=== PATIENT | male | born 1950 | race Caucasian/White ===

== ENCOUNTER 2022-10-20 17:51 | Inpatient (IN) ==
--- NOTE | 2022-10-20 18:09 | Emergency Department Note ---
Impression & Plan Sepsis, Elevated procalcitonin, Leukocytosis ED Provider Note HISTORY OF PRESENT ILLNESS: Patient is a 72-year-old male presenting with vomiting and rigors. Patient reports that for the last 48 hours he has been having episodes of vomiting and episodes of "shaking." He denies taking his temperature but his significant other reports that he has felt warm. Reports a bowel movement yesterday. He recently had part of his liver resected and a cholecystectomy performed on 10/05/2022. He states that he took his last postoperative antibiotic 3 days ago. He denies any chest pain or shortness of breath. Denies any dysuria or hematuria. ROS: as above PHYSICAL EXAM: Constitutional: Patient appears in no acute distress. HENT: Head: Normocephalic and atraumatic. Eyes: EOMI, PERRL Mouth/Throat: Mucous membranes moist. Neck: Trachea midline. Neck supple. Cardiovascular: RRR, No murmurs, rubs or gallops. Intact distal pulses. Pulmonary/Chest: No respiratory distress. Breath sounds clear and equal bilaterally. No wheezes or rales. No chest wall tenderness to palpation. Abdominal: BS +. Abdomen soft, no tenderness, rebound or guarding. Musculoskeletal: No edema, tenderness or deformity noted. Skin: Warm and dry. No rash, erythema, pallor or cyanosis Psychiatric: Appropriate mood and affect for situation. Neurological: Alert and keenly responsive. CN II-XII grossly intact, moving all extremities equally and fully. MDM: - Vitals signs showed hypotension. - History obtained via patient. Patient presents with vomiting and rigors. Patient reports for the last 48 hours has been having multiple episodes of vomiting and shaking. Reports subjective fevers at home. Denies any chest pain or shortness of breath. Denies any dysuria or hematuria. - Chronic conditions affecting care: cancer - Differential diagnoses include, but are not limited to: UTI; pneumonia; bacteremia; post-op infection - Order placed for continuous cardiac monitoring. At this time, monitor showed rate of 90 bpm with normal sinus rhythm, per my interpretation. - External medical records reviewed. - EKG reviewed by myself showed normal sinus rhythm. Rate 83 bpm. QTc 420. No acute ischemic changes - Laboratory workup interpreted by myself showed leukocytosis (WBC 17.71) with left shift; elevated lactate (2.9); slight hyponatremia (Na 135); elevated anion gap (14); normal creatinine; normal liver function; elevated procalcitonin (28.33) - CXR negative for pneumonia, per my interpretation - UA ordered - CT abdomen/pelvis with IV contrast negative for acute pathology - Blood cultures obtained. - Patient given 2L NS in ER. - Given IV vancomycin and IV zosyn for antibiotic coverage. - Patient had episode of vomiting in ER. Given 4 mg IV zofran. Active rigors in ER. Given 1g IV rocephin. - Discussion was had with social media intern about patient's case and need for admission. - Hospitalist, Dr. Luna, consulted for admission - [facility] I provided 33 minutes of critical care time to this patient's care outside of billable procedures. ASSESSMENT AND PLAN: Diagnosis: sepsis; leukocytosis; elevated lactate; hyponatremia; elevated procalcitonin Plan: admit Past Med/Surg History Social History Smoking Status: Former smoker Preferred Language: Portuguese Feels Safe at Home: Yes Allergies Allergies Allergy/AdvReac Type Severity Reaction Status Date / Time No Known Allergies Allergy Verified 10/20/22 19:36 Home Meds Home Medications Medication Instructions Recorded Confirmed aspirin 81 mg tablet,delayed 81 mg PO DAILY 10/20/22 10/20/22 release atorvastatin 80 mg tablet 80 mg PO QAM 10/20/22 10/20/22 ezetimibe 10 mg tablet 10 mg PO QAM 10/20/22 10/20/22 ibuprofen 600 mg tablet 600 mg PO Q6H PRN Pain 10/20/22 10/20/22 meloxicam 15 mg tablet 15 mg PO DAILY 10/20/22 10/20/22 multivitamin 1 tab PO DAILY 10/20/22 10/20/22 oxycodone 10 mg tablet 10 mg PO Q6H PRN Pain 10/20/22 10/20/22 spironolactone 25 mg tablet 25 mg PO DAILY 10/20/22 10/20/22 Results & Data (ED) Vital Signs Vital Signs - 24 hr 10/20/22 17:57 10/20/22 18:10 10/20/22 18:30 Temperature 36.5 C Temperature Source Temporal Artery Scan Pulse Rate 110 H 94 H Pulse Rate [Apical] 82 Pulse Rate from SpO2 Sensor Respiratory Rate 19 18 Respiratory Effort / Characteristics Non-Labored Spontaneous Non-Labored Spontaneous Respiratory Depth Normal Normal Respiratory Pattern Regular Blood Pressure 65/32 L Blood Pressure [Right Arm] 97/59 L Blood Pressure Mean 43 Blood Pressure Mean [Right Arm] 71 Pulse Oximetry 97 94 Oxygen Delivery Method Room Air Room Air Sepsis Recent Fever Within 48 Hours No Sepsis New/Unexplained Change in Mental Status N/A Sepsis Action Taken by Nursing No Action Required 10/20/22 20:37 10/20/22 18:08 10/20/22 18:10 Temperature Temperature Source Pulse Rate 87 86 Pulse Rate [Apical] Pulse Rate from SpO2 Sensor Respiratory Rate 23 21 Respiratory Effort / Characteristics Non-Labored Respiratory Depth Normal Respiratory Pattern Blood Pressure Blood Pressure [Right Arm] Blood Pressure Mean Blood Pressure Mean [Right Arm] Pulse Oximetry Oxygen Delivery Method Sepsis Recent Fever Within 48 Hours Sepsis New/Unexplained Change in Mental Status Sepsis Action Taken by Nursing 10/20/22 18:20 10/20/22 18:30 10/20/22 18:30 Temperature Temperature Source Pulse Rate 86 82 Pulse Rate [Apical] Pulse Rate from SpO2 Sensor 82 Respiratory Rate 20 24 Respiratory Effort / Characteristics Respiratory Depth Respiratory Pattern Blood Pressure 97/59 L Blood Pressure [Right Arm] Blood Pressure Mean 64 Blood Pressure Mean [Right Arm] Pulse Oximetry 97 Oxygen Delivery Method Sepsis Recent Fever Within 48 Hours Sepsis New/Unexplained Change in Mental Status Sepsis Action Taken by Nursing 10/20/22 18:40 10/20/22 18:50 10/20/22 19:00 Temperature Temperature Source Pulse Rate 87 86 85 Pulse Rate [Apical] Pulse Rate from SpO2 Sensor 86 85 84 Respiratory Rate 22 16 18 Respiratory Effort / Characteristics Respiratory Depth Respiratory Pattern Blood Pressure Blood Pressure [Right Arm] Blood Pressure Mean Blood Pressure Mean [Right Arm] Pulse Oximetry 100 100 97 Oxygen Delivery Method Sepsis Recent Fever Within 48 Hours Sepsis New/Unexplained Change in Mental Status Sepsis Action Taken by Nursing 10/20/22 19:10 10/20/22 19:20 10/20/22 19:30 Temperature Temperature Source Pulse Rate 86 87 87 Pulse Rate [Apical] Pulse Rate from SpO2 Sensor 86 88 85 Respiratory Rate 20 16 21 Respiratory Effort / Characteristics Respiratory Depth Respiratory Pattern Blood Pressure Blood Pressure [Right Arm] Blood Pressure Mean Blood Pressure Mean [Right Arm] Pulse Oximetry 96 98 99 Oxygen Delivery Method Sepsis Recent Fever Within 48 Hours Sepsis New/Unexplained Change in Mental Status Sepsis Action Taken by Nursing 10/20/22 19:31 10/20/22 19:31 10/20/22 19:39 Temperature Temperature Source Pulse Rate 87 85 Pulse Rate [Apical] Pulse Rate from SpO2 Sensor 87 88 Respiratory Rate 24 18 Respiratory Effort / Characteristics Respiratory Depth Respiratory Pattern Blood Pressure 85/60 L Blood Pressure [Right Arm] Blood Pressure Mean 67 Blood Pressure Mean [Right Arm] Pulse Oximetry 97 99 Oxygen Delivery Method Sepsis Recent Fever Within 48 Hours Sepsis New/Unexplained Change in Mental Status Sepsis Action Taken by Nursing 10/20/22 19:39 10/20/22 19:40 10/20/22 20:27 Temperature Temperature Source Pulse Rate 85 Pulse Rate [Apical] Pulse Rate from SpO2 Sensor 86 85 Respiratory Rate 24 Respiratory Effort / Characteristics Respiratory Depth Respiratory Pattern Blood Pressure 91/54 L Blood Pressure [Right Arm] Blood Pressure Mean 59 Blood Pressure Mean [Right Arm] Pulse Oximetry 100 99 Oxygen Delivery Method Sepsis Recent Fever Within 48 Hours Sepsis New/Unexplained Change in Mental Status Sepsis Action Taken by Nursing 10/20/22 20:30 10/20/22 20:30 10/20/22 21:45 Temperature Temperature Source Pulse Rate 84 Pulse Rate [Apical] Pulse Rate from SpO2 Sensor 86 Respiratory Rate 16 Respiratory Effort / Characteristics Non-Labored Respiratory Depth Normal Respiratory Pattern Blood Pressure 89/55 L Blood Pressure [Right Arm] Blood Pressure Mean 68 Blood Pressure Mean [Right Arm] Pulse Oximetry 100 Oxygen Delivery Method Room Air Sepsis Recent Fever Within 48 Hours Sepsis New/Unexplained Change in Mental Status Sepsis Action Taken by Nursing 10/20/22 20:00 10/20/22 20:40 10/20/22 20:50 Temperature Temperature Source Pulse Rate 82 85 Pulse Rate [Apical] Pulse Rate from SpO2 Sensor 82 86 Respiratory Rate 24 12 Respiratory Effort / Characteristics Non-Labored Respiratory Depth Normal Respiratory Pattern Blood Pressure Blood Pressure [Right Arm] Blood Pressure Mean Blood Pressure Mean [Right Arm] Pulse Oximetry 98 99 Oxygen Delivery Method Sepsis Recent Fever Within 48 Hours Sepsis New/Unexplained Change in Mental Status Sepsis Action Taken by Nursing 10/20/22 21:00 10/20/22 21:00 10/20/22 21:10 Temperature Temperature Source Pulse Rate 80 80 Pulse Rate [Apical] Pulse Rate from SpO2 Sensor 80 80 Respiratory Rate 18 14 Respiratory Effort / Characteristics Respiratory Depth Respiratory Pattern Blood Pressure 94/62 L Blood Pressure [Right Arm] Blood Pressure Mean 68 Blood Pressure Mean [Right Arm] Pulse Oximetry 98 99 Oxygen Delivery Method Sepsis Recent Fever Within 48 Hours Sepsis New/Unexplained Change in Mental Status Sepsis Action Taken by Nursing 10/20/22 21:20 10/20/22 21:30 10/20/22 21:30 Temperature Temperature Source Pulse Rate 82 83 Pulse Rate [Apical] Pulse Rate from SpO2 Sensor 81 80 Respiratory Rate 18 16 Respiratory Effort / Characteristics Respiratory Depth Respiratory Pattern Blood Pressure 91/55 L Blood Pressure [Right Arm] Blood Pressure Mean 60 Blood Pressure Mean [Right Arm] Pulse Oximetry 97 99 Oxygen Delivery Method Sepsis Recent Fever Within 48 Hours Sepsis New/Unexplained Change in Mental Status Sepsis Action Taken by Nursing 10/20/22 21:40 10/20/22 22:00 10/20/22 22:15 Temperature Temperature Source Pulse Rate 79 Pulse Rate [Apical] Pulse Rate from SpO2 Sensor 79 Respiratory Rate 17 Respiratory Effort / Characteristics Non-Labored Non-Labored Respiratory Depth Normal Normal Respiratory Pattern Blood Pressure Blood Pressure [Right Arm] Blood Pressure Mean Blood Pressure Mean [Right Arm] Pulse Oximetry 98 Oxygen Delivery Method Sepsis Recent Fever Within 48 Hours Sepsis New/Unexplained Change in Mental Status Sepsis Action Taken by Nursing 10/20/22 21:50 10/20/22 22:00 10/20/22 22:00 Temperature Temperature Source Pulse Rate 86 82 Pulse Rate [Apical] Pulse Rate from SpO2 Sensor 83 84 Respiratory Rate 17 19 Respiratory Effort / Characteristics Respiratory Depth Respiratory Pattern Blood Pressure 103/67 Blood Pressure [Right Arm] Blood Pressure Mean 85 Blood Pressure Mean [Right Arm] Pulse Oximetry 98 99 Oxygen Delivery Method Sepsis Recent Fever Within 48 Hours Sepsis New/Unexplained Change in Mental Status Sepsis Action Taken by Nursing 10/20/22 22:10 Temperature Temperature Source Pulse Rate 89 Pulse Rate [Apical] Pulse Rate from SpO2 Sensor 78 Respiratory Rate 19 Respiratory Effort / Characteristics Respiratory Depth Respiratory Pattern Blood Pressure Blood Pressure [Right Arm] Blood Pressure Mean Blood Pressure Mean [Right Arm] Pulse Oximetry 92 Oxygen Delivery Method Sepsis Recent Fever Within 48 Hours Sepsis New/Unexplained Change in Mental Status Sepsis Action Taken by Nursing Laboratory Data 10/20/22 18:19 10/20/22 18:19 Lab Results 10/20/22 10/20/22 10/20/22 Range/Units 18:19 18:19 18:19 WBC 17.71 H (4.8-10.8) K/ul RBC 3.62 L (4.70-6.10) M/uL Hgb 10.4 L (14.0-18.0) g/dl Hct 31.9 L (42.0-52.0) % MCV 88.1 (80.0-100.0) fL MCH 28.7 (25.0-34.0) pg MCHC 32.6 (32.0-36.0) g/dL RDW Std Deviation 46.3 (36.4-46.3) fL RDW Coeff of Brandon 14.6 H (11.5-14.5) % Plt Count 225 (130-400) K/uL MPV 10.0 (9.4-12.4) fL Immature Gran % (Auto) 0.8 % Neut % (Auto) 92.4 % Lymph % (Auto) 3.8 % Benson % (Auto) 2.7 % Eos % (Auto) 0.1 % Baso % (Auto) 0.2 % Neut # (Auto) 16.36 H (1.40-6.50) K/uL Lymph # (Auto) 0.67 L (1.2-3.4) K/uL Benson # (Auto) 0.48 (0.11-0.59) K/uL Eos # (Auto) 0.02 (0-0.50) K/uL Baso # (Auto) 0.03 (0-0.2) K/uL Immature Gran # (Auto) 0.15 (0.01-0.20) K/uL Sodium 135 L (136-145) mmol/L Potassium 4.1 (3.5-5.1) mmol/L Chloride 99 (98-107) mmol/L Carbon Dioxide 22 (21-32) mmol/L Anion Gap 14 H (3-11) BUN 28 H (6-23) mg/dl Creatinine 1.35 (0.6-1.4) mg/dl Est Cr Clr Drug Dosing 42.6 ml/min Est GFR ( Amer) 59.5 ml/min Est GFR (Non-Af Amer) 51.4 ml/min BUN/Creatinine Ratio 20.7 H (10-20) Glucose 78 (70-99(Fasting)) mg/dl Lactate (0.4-2.0) mmol/L Calcium 9.4 (8.6-10.3) mg/dl Magnesium 1.9 (1.7-2.4) mg/dl Total Bilirubin 0.7 (0.2-1.0) mg/dl Direct Bilirubin 0.2 (0-0.2) mg/dl AST 21 (13-39) U/L ALT 14 (7-52) U/L Alkaline Phosphatase 122 H (34-104) U/L Total Protein 6.8 (6.0-8.3) gm/dl Albumin 3.6 (3.4-5.0) gm/dl Procalcitonin 28.33 H (0-0.5) ng/ml SARS-CoV-2, RNA, NAAT (NEGATIVE) 10/20/22 10/20/22 10/20/22 Range/Units 19:03 19:42 21:05 WBC (4.8-10.8) K/ul RBC (4.70-6.10) M/uL Hgb (14.0-18.0) g/dl Hct (42.0-52.0) % MCV (80.0-100.0) fL MCH (25.0-34.0) pg MCHC (32.0-36.0) g/dL RDW Std Deviation (36.4-46.3) fL RDW Coeff of Brandon (11.5-14.5) % Plt Count (130-400) K/uL MPV (9.4-12.4) fL Immature Gran % (Auto) % Neut % (Auto) % Lymph % (Auto) % Benson % (Auto) % Eos % (Auto) % Baso % (Auto) % Neut # (Auto) (1.40-6.50) K/uL Lymph # (Auto) (1.2-3.4) K/uL Benson # (Auto) (0.11-0.59) K/uL Eos # (Auto) (0-0.50) K/uL Baso # (Auto) (0-0.2) K/uL Immature Gran # (Auto) (0.01-0.20) K/uL Sodium (136-145) mmol/L Potassium (3.5-5.1) mmol/L Chloride (98-107) mmol/L Carbon Dioxide (21-32) mmol/L Anion Gap (3-11) BUN (6-23) mg/dl Creatinine (0.6-1.4) mg/dl Est Cr Clr Drug Dosing ml/min Est GFR ( Amer) ml/min Est GFR (Non-Af Amer) ml/min BUN/Creatinine Ratio (10-20) Glucose (70-99(Fasting)) mg/dl Lactate 2.9 H* 1.0 (0.4-2.0) mmol/L Calcium (8.6-10.3) mg/dl Magnesium (1.7-2.4) mg/dl Total Bilirubin (0.2-1.0) mg/dl Direct Bilirubin (0-0.2) mg/dl AST (13-39) U/L ALT (7-52) U/L Alkaline Phosphatase (34-104) U/L Total Protein (6.0-8.3) gm/dl Albumin (3.4-5.0) gm/dl Procalcitonin (0-0.5) ng/ml SARS-CoV-2, RNA, NAAT NEGATIVE (NEGATIVE) Administered Medications Discontinued Medications Sodium Chloride (Nss 1000ml) 1,000 mls @ 999 mls/hr IV .Q1H1M LASHAWN Stop: 10/20/22 19:15 Last Infusion: 10/20/22 19:46 Dose: 0 mls/hr Documented By: Admin: 10/20/22 18:33 Dose: 999 mls/hr Documented By: LINDSAY Vancomycin HCl 1,250 mg/ (Sodium Chloride) 525 mls @ 200 mls/hr IV NOW ONE Stop: 10/20/22 22:33 Last Admin: 10/20/22 21:16 Dose: 200 mls/hr Documented By: JANEE Piperacillin Sod/Tazobactam Sod (Zosyn) 4.5 gm in 120 mls @ 240 mls/hr IV NOW ONE Stop: 10/20/22 20:25 Last Infusion: 10/20/22 21:20 Dose: 0 mls/hr Documented By: Admin: 10/20/22 20:34 Dose: 240 mls/hr Documented By: RAFI Sodium Chloride (Nss 1000ml) 1,000 mls @ 999 mls/hr IV .Q1H1M ONE Stop: 10/20/22 21:30 Last Infusion: 10/20/22 22:30 Dose: 0 mls/hr Documented By: Admin: 10/20/22 20:36 Dose: 999 mls/hr Documented By: RAFI Ioversol (Optiray 320 100ml) 90 ml IV ONCE ONE Stop: 10/20/22 19:56 Last Admin: 10/20/22 19:55 Dose: 90 ml Documented By: EDGAR Ondansetron HCl (Ondansetron Inj 2 Mg/Ml 2 Ml Vial) 4 mg IV NOW STA Stop: 10/20/22 22:43 Last Admin: 10/20/22 22:46 Dose: 4 mg Documented By: RAFI Ondansetron HCl (Ondansetron Inj 2 Mg/Ml 2 Ml Vial) Confirm Administered Dose 4 mg .ROUTE .STK-MED ONE Stop: 10/20/22 22:45 Last Admin: 10/20/22 22:46 Dose: Not Given Documented By: RAFI Imaging Data Radiologist's Impression: Abdomen/Pelvis CT 10/20/22 18:07 Exam(s): CT ABDOMEN + PELVIS With Contrast IV Amt: 90ml EXAM: CT Abdomen and Pelvis With Intravenous Contrast CLINICAL HISTORY: Reason for exam: abd pain; vomiting; recent liver resect and cholec. TECHNIQUE: Axial computed tomography images of the abdomen and pelvis with intravenous contrast. CTDI is 9.74 mGy and DLP is 443.32 mGy-cm. Automated exposure control was utilized for the study. A dose lowering technique was utilized adhering to the principles of ALARA. CONTRAST: Patient received 90ml of IV contrast COMPARISON: No relevant prior studies available. FINDINGS: Lung bases: Unremarkable. No mass. No consolidation. ABDOMEN: Liver: Status post left hepatectomy. Minimal simple appearing fluid adjacent to the surgical margin. Several low densities in the right lobe of the liver measuring up to 1.1 cm consistent with simple cysts. Gallbladder and bile ducts: Unremarkable. No calcified stones. No ductal dilation. Pancreas: Unremarkable. No mass. No ductal dilation. Spleen: Unremarkable. No splenomegaly. Adrenals: Unremarkable. No mass. Kidneys and ureters: 3 cm simple cyst arising off the lower pole of the right kidney. No further workup is required. No hydronephrosis. Stomach and bowel: Unremarkable. No obstruction. No mucosal thickening. PELVIS: Appendix: No findings to suggest acute appendicitis. Bladder: Unremarkable. No mass. Reproductive: Unremarkable as visualized. ABDOMEN and PELVIS: Intraperitoneal space: Unremarkable. No free air. No significant fluid collection. Bones/joints: No acute fracture. No dislocation. Soft tissues: Unremarkable. Vasculature: Gallbladder has been removed. 3.2 cm infrarenal abdominal aortic aneurysm without evidence of rupture. Lymph nodes: Unremarkable. No enlarged lymph nodes. IMPRESSION: No acute findings in the abdomen or pelvis. Status post left hepatectomy. Minimal simple appearing fluid adjacent to the surgical margin. 3.2 cm infrarenal abdominal aortic aneurysm without evidence of rupture. Electronically signed by: Carl Harrison M.D. 10/20/22 22:21 PM Chest X-Ray 10/20/22 18:07 XR chest 1V portable HISTORY: 72 years-old Male Sepsis acute sepsis COMPARISON: CT abdomen and pelvis of same day TECHNIQUE: AP view of the chest FINDINGS: Cardiomediastinal and hilar silhouettes are within normal limits. No pneum othorax, pleural effusion, airspace consolidation or pulmonary edema. Spondylotic spurring of the spine with mid thoracic dextroscoliosis. IMPRESSION: No acute process. ACT 112: Negative or not required by law. The above report was generated using voice recognition software. It may contain grammatical, syntax or spelling errors. Electronically signed by: Sean Bartholomew M.D. 10/20/2022 8:07 PM Discharge Plan Visit Data Chief Complaint: Abdominal Pain Stated Complaint: STOMACH SURGERY ED Provider: Digna Pineda Discharge Problem: Sepsis, Elevated procalcitonin, Leukocytosis Forms Stand Alone Forms: On License Of [facility] Prescriptions Prescriptions: No Action multivitamin Tablet 1 tab PO DAILY atorvastatin 80 mg tablet 80 mg PO QAM meloxicam 15 mg tablet 15 mg PO DAILY aspirin 81 mg Tablet,Delayed Release (Dr/Ec) 81 mg PO DAILY spironolactone 25 mg tablet 25 mg PO DAILY Rx Instructions: STARTED 10/09/22 FOR 14 DAYS. ibuprofen 600 mg tablet 600 mg PO Q6H PRN (Reason: Pain) ezetimibe 10 mg tablet 10 mg PO QAM oxycodone 10 mg tablet 10 mg PO Q6H PRN (Reason: Pain) Referrals Referrals: PCP,NO [Primary Care Provider] -
[2022-10-20] MEDS ORDERED: SODIUM CHLORIDE 0.9% 1000ML 1,000 ML IV SCH (18:15)
[2022-10-20 19:21] LABS: Hematocrit (blood only) 31.9 % (42.0-52.0); Hemoglobin 10.4 g/dl (14.0-18.0); Mean Corpuscular Hemoglobin 28.7 pg (25.0-34.0); Mean Corpuscular Hgb Conc 32.6 g/dL (32.0-36.0); Mean Corpuscular Volume 88.1 fL (80.0-100.0); Platelet Count 225 K/uL (130-400); RDW Coefficient of Variation 14.6 % (11.5-14.5); RDW Standard Deviation 46.3 fL (36.4-46.3); Red Blood Count 3.62 M/uL (4.70-6.10); White Blood Count 17.71 K/ul (4.8-10.8)
[2022-10-20 19:31] LABS: Albumin Level 3.6 gm/dl (3.4-5.0); BUN Creatinine Ratio 20.7 (10-20); Bilirubin Direct 0.2 mg/dl (0-0.2); Bilirubin,Total 0.7 mg/dl (0.2-1.0); Calcium 9.4 mg/dl (8.6-10.3); Creatinine Clr Calc Pharmacy 42.6 ml/min; Est GFR (African American) 59.5 ml/min; Est GFR (Non-African American) 51.4 ml/min; Magnesium 1.9 mg/dl (1.7-2.4); Potassium 4.1 mmol/L (3.5-5.1); Total Protein 6.8 gm/dl (6.0-8.3)
[2022-10-20 19:46] LABS: Basophils # (auto) 0.03 K/uL (0-0.2); Basophils % (auto) 0.2 %; Eosinophils # (auto) 0.02 K/uL (0-0.50); Eosinophils % (auto) 0.1 %; Immature Granulocytes # (auto) 0.15 K/uL (0.01-0.20); Immature Granulocytes % (auto) 0.8 %; Lymphocytes # (auto) 0.67 K/uL (1.2-3.4); Lymphocytes % (auto) 3.8 %; Monocytes # (auto) 0.48 K/uL (0.11-0.59); Monocytes % (auto) 2.7 %; Neutrophils # (auto) 16.36 K/uL (1.40-6.50); Neutrophils % (auto) 92.4 %
[2022-10-20] MEDS ORDERED: OPTIRAY 320 100ml IV ONE (19:55)
[2022-10-20] MEDS ORDERED: VANCOMYCIN CONSULT ACTIVE PRN (19:56)
[2022-10-20] MEDS ORDERED: PIPERACILLIN/TAZOBACTAM 4.5 GM/120 ML BAG IV ONE (19:56)
[2022-10-20] MEDS ORDERED: VANCOMYCIN HCL 1,250 MG in SODIUM CHLORIDE 0.9% 500 ML IV ONE (19:56)
--- NOTE | 2022-10-20 20:09 | XRay Report ---
XR chest 1V portable HISTORY: 72 years-old Male Sepsis acute sepsis COMPARISON: CT abdomen and pelvis of same day TECHNIQUE: AP view of the chest FINDINGS: Cardiomediastinal and hilar silhouettes are within normal limits. No pneumothorax, pleural effusion, airspace consolidation or pulmonary edema. Spondylotic spurring of the spine with mid thoracic dextro scoliosis. IMPRESSION: No acute process. ACT 112: Negative or not required by law. The above report was generated using voice recognition software. It may contain grammatical, syntax o r spelling errors. Electronically signed by: Sean Bartholomew M.D. 10/20/2022 8:07 PM
[2022-10-20] MEDS ORDERED: SODIUM CHLORIDE 0.9% 1000ML 1,000 ML IV ONE (20:30)
--- NOTE | 2022-10-20 22:22 | CT Scan Report ---
Exam(s): CT ABDOMEN + PELVIS With Contrast IV Amt: 90ml EXAM: CT Abdomen and Pelvis With Intravenous Contrast CLINICAL HISTORY: Reason for exam: abd pain; vomiting; recent liver resect and cholec. TECHNIQUE: Axial computed tomography images of the abdomen and pelvis with intravenous contrast. CTDI is 9.74 mGy and DLP is 443.32 mGy-cm. Automated exposure control was utilized for the study. A dose lowering technique was utilized adhering to the principles of ALARA. CONTRAST: Patient received 90ml of IV contrast COMPARISON: No relevant prior studies available. FINDINGS: Lung bases: Unremarkable. No mass. No consolidation. ABDOMEN: Liver: Status post left hepatectomy. Minimal simple appearing fluid adjacent to the surgical margin. Several low densities in the right lobe of the liver measuring up to 1.1 cm consistent with simple cysts. Gallbladder and bile ducts: Unremarkable. No calcified stones. No ductal dilation. Pancreas: Unremarkable. No mass. No ductal dilation. Spleen: Unremarkable. No splenomegaly. Adrenals: Unremarkable. No mass. Kidneys and ureters: 3 cm simple cyst arising off the lower pole of the right kidney. No further workup is required. No hydronephrosis. Stomach and bowel: Unremarkable. No obstruction. No mucosal thickening. PELVIS: Appendix: No findings to suggest acute appendicitis. Bladder: Unremarkable. No mass. Reproductive: Unremarkable as visualized. ABDOMEN and PELVIS: Intraperitoneal space: Unremarkable. No free air. No significant fluid collection. Bones/joints: No acute fracture. No dislocation. Soft tissues: Unremarkable. Vasculature: Gallbladder has been removed. 3.2 cm infrarenal abdominal aortic aneurysm without evidence of rupture. Lymph nodes: Unremarkable. No enlarged lymph nodes. IMPRESSION: No acute findings in the abdomen or pelvis. Status post left hepatectomy. Minimal simple appearing fluid adjacent to the surgical margin. 3.2 cm infrarenal abdominal aortic aneurysm without evidence of rupture. Electronically signed by: Carl Harrison M.D. 10/20/22 22:21 PM
[2022-10-20] MEDS ORDERED: ONDANSETRON INJ 2 MG/ML 2 ML VIAL IV STA (22:42)
[2022-10-20] MEDS ORDERED: ACETAMINOPHEN 1,000 MG/100 ML VIAL IV STA (22:43)
[2022-10-20] MEDS ORDERED: ONDANSETRON INJ 2 MG/ML 2 ML VIAL ONE (22:44)
[2022-10-21] MEDS ORDERED: SODIUM CHLORIDE 0.9% 500 ML IV SCH (00:15)
--- NOTE | 2022-10-21 00:28 | History & Physical Report ---
Date of Service October 21, 2022 Assessment & Plan (1) Sepsis: Plan: 72-year-old male with past medical significant hyperlipidemia, AAA s/p surgery in June 2022, s/p surgery for cholecystectomy and liver resection on October 05, 2022 at [place] for infected gallbladder and clogged liver as per patient and biopsy benign as per patient comes because of chills nausea and vomiting and abdominal pain. CT abdomen pelvis with IV contrast is okay. Awaiting urine sample. Blood pressure soft. Elevated leukocytosis and procalcitonin. He was started on iv vancomycin and IV Zosyn which will be continued. We will continue IV fluids. We will follow the cultures. We will monitor the hemodynamics. We will consult surgery in a.m. for further recommendations. Close monitoring telemetry floor. Hyperlipidemia Continue statin and ezetimibe. History of AAA S/p surgery Continue aspirin and statin. DVT prophylaxis Lovenox Disposition Close monitoring telemetry floor CODE STATUS Full code (2) Elevated procalcitonin: (3) Leukocytosis: History of Present Illness Chief Complaint: Chills and nausea and abdominal pain Primary Care Provider: NO PCP This is a 72-year-old male with past medical significant for hyperlipidemia, abdominal aortic aneurysm s/p surgery in June 2022 at [place], s/p surgery for cholecystectomy and part of liver taken out on October 05, 2022 at [place] as per patient for infected gallbladder and clogging of the left liver ducts. Patient says the biopsy results just came as benign. Patient is from [facility].. Patient states he followed up after surgery with PCP 1 week later and found to have systolic blood pressure in 80s. PCP discussed the surgery at [place] and was recommended to drink a lot of water and Gatorade and diuretics which were started after surgery with stopped. He states his blood pressure is improved to 100s. Patient states that usually his blood pressure is in 110/ 70 range. Patient states that after his AAA surgery in June 1 week later he was in [facility] for infection. Patient says they could not figure out where the infection is coming from but thought probably from gallbladder. Patient thinks his infection never went away. After his gallbladder and liver surgery he was on antibiotics which was done few days ago. Patient was camping [facility] and last night he had shaking chills and was nauseous and after vomiting his symptoms resolved. Again in the morning he had similar symptoms of shaking chills and and got resolved after vomiting. He also noticed his vision was very bright but his pupils were pinpoint . At this time it was decided to bring him to the hospital. On the way to the hospital his vision was again bright but sunglasses helped. Currently his vision is okay. His blood pressure was soft in the ER. Was nauseous. Has elevated white count and elevated procalcitonin. CT abdomen pelvis was okay. Urine sample is pending. Says has some pain at the incision site. Has shortness of breath on exertion. Denies any headache. Has some dizziness because his blood pressure is soft. No runny nose no sore throat. No cough. Afebrile. Had normal bowel movement yesterday. Denies any blood in the stools or black stools. Normal micturition as per the patient. Past medical history as mentioned above. Past surgical history s/p AAA repair surgery, s/p cholecystectomy and liver resection, history of penile implant Allergies Allergy/AdvReac Type Severity Reaction Status Date / Time No Known Allergies Allergy Verified 10/20/22 19:36 Home Medications Medication Instructions Recorded Confirmed Type aspirin 81 mg tablet,delayed 81 mg PO DAILY 10/20/22 10/20/22 History release atorvastatin 80 mg tablet 80 mg PO QAM 10/20/22 10/20/22 History ezetimibe 10 mg tablet 10 mg PO QAM 10/20/22 10/20/22 History ibuprofen 600 mg tablet 600 mg PO Q6H PRN Pain 10/20/22 10/20/22 History meloxicam 15 mg tablet 15 mg PO DAILY 10/20/22 10/20/22 History multivitamin 1 tab PO DAILY 10/20/22 10/20/22 History oxycodone 10 mg tablet 10 mg PO Q6H PRN Pain 10/20/22 10/20/22 History spironolactone 25 mg tablet 25 mg PO DAILY 10/20/22 10/20/22 History Past Med/Surg History Family History (Updated 10/21/22 @ 00:21 by Bill Luna MD) Father Coronary heart disease Stroke Social History (Updated 10/21/22 @ 00:22 by Bill Luna MD) Smoking Status: Former smoker packs per day: 1; Preferred Language: Somali Feels Safe at Home: Yes Review of Systems Review of Systems: All systems reviewed & are unremarkable except as noted in Subjective Physical Exam Physical Exam: NEEDS EDITING General- adult Head- atraumatic Eyes- PERRL, ENT- oropharynx clear Neck- supple, no JVD, no adenopathy, Lungs- clear to auscultation and percussion Heart- regular rhythm; no murmur, no gallop, no rub appreciated Abdomen- normal bowel sounds, soft, nontender, no masses , surgical incision no active drainage or erythema seen Extremities- no pretibial edema, no erythema Neuro- alert, oriented x 3; PERRL,; no facial palsy; no dysarthria; non focal Skin- warm & dry Results & Data Results & Data Vital Signs (Past 12 Hours) Vital Signs Temp Pulse Pulse Resp BP BP Pulse Ox 10/21/22 00:00 95 H 22 92 10/21/22 00:00 80/53 L 10/20/22 23:51 99/56 L 10/20/22 23:51 99 H 23 91 10/20/22 23:50 101 H 19 92 10/20/22 23:40 97 H 19 93 10/20/22 23:30 97 H 19 91 10/20/22 23:20 101 H 20 92 10/20/22 23:10 98 H 18 94 10/20/22 23:00 95 H 21 97 10/20/22 23:00 119/76 10/20/22 22:50 98 H 23 10/20/22 22:40 95 H 22 10/20/22 22:31 88 25 H 10/20/22 22:31 124/62 10/20/22 22:30 94 H 24 10/20/22 22:20 79 18 10/20/22 22:00 81 10/20/22 22:10 89 19 92 10/20/22 22:00 82 19 99 10/20/22 22:00 103/67 10/20/22 21:50 86 17 98 10/20/22 21:40 79 17 98 10/20/22 21:30 83 16 99 10/20/22 21:30 91/55 L 10/20/22 21:20 82 18 97 10/20/22 21:10 80 14 99 10/20/22 21:00 80 18 98 10/20/22 21:00 94/62 L 10/20/22 20:50 85 12 99 10/20/22 20:40 82 24 98 10/20/22 21:45 10/20/22 20:30 84 16 100 10/20/22 20:30 89/55 L 10/20/22 20:27 99 10/20/22 19:40 85 24 100 10/20/22 19:39 91/54 L 10/20/22 19:39 85 18 99 10/20/22 19:31 85/60 L 10/20/22 19:31 87 24 97 10/20/22 19:30 87 21 99 10/20/22 19:20 87 16 98 10/20/22 19:10 86 20 96 10/20/22 19:00 85 18 97 10/20/22 18:50 86 16 100 10/20/22 18:40 87 22 100 10/20/22 18:30 82 24 97 10/20/22 18:30 97/59 L 10/20/22 18:20 86 20 10/20/22 18:10 86 21 10/20/22 18:08 87 23 10/20/22 18:30 82 18 97/59 L 94 10/20/22 18:10 94 H 10/20/22 17:57 36.5 C 110 H 19 65/32 L 97 O2 Del Method 10/21/22 00:00 10/21/22 00:00 10/20/22 23:51 10/20/22 23:51 10/20/22 23:50 10/20/22 23:40 10/20/22 23:30 10/20/22 23:20 10/20/22 23:10 10/20/22 23:00 10/20/22 23:00 10/20/22 22:50 10/20/22 22:40 10/20/22 22:31 10/20/22 22:31 10/20/22 22:30 10/20/22 22:20 10/20/22 22:00 10/20/22 22:10 10/20/22 22:00 10/20/22 22:00 10/20/22 21:50 10/20/22 21:40 10/20/22 21:30 10/20/22 21:30 10/20/22 21:20 10/20/22 21:10 10/20/22 21:00 10/20/22 21:00 10/20/22 20:50 10/20/22 20:40 10/20/22 21:45 Room Air 10/20/22 20:30 10/20/22 20:30 10/20/22 20:27 10/20/22 19:40 10/20/22 19:39 10/20/22 19:39 10/20/22 19:31 10/20/22 19:31 10/20/22 19:30 10/20/22 19:20 10/20/22 19:10 10/20/22 19:00 10/20/22 18:50 10/20/22 18:40 10/20/22 18:30 10/20/22 18:30 10/20/22 18:20 10/20/22 18:10 10/20/22 18:08 10/20/22 18:30 Room Air 10/20/22 18:10 10/20/22 17:57 Room Air Diagnostic Findings Laboratory Results WBC 17.71 K/ul (4.8-10.8) H 10/20/22 18:19 RBC 3.62 M/uL (4.70-6.10) L 10/20/22 18:19 Hgb 10.4 g/dl (14.0-18.0) L 10/20/22 18:19 Hct 31.9 % (42.0-52.0) L 10/20/22 18:19 MCV 88.1 fL (80.0-100.0) 10/20/22 18:19 MCH 28.7 pg (25.0-34.0) 10/20/22 18:19 MCHC 32.6 g/dL (32.0-36.0) 10/20/22 18:19 RDW Std Deviation 46.3 fL (36.4-46.3) 10/20/22 18:19 RDW Coeff of Brandon 14.6 % (11.5-14.5) H 10/20/22 18:19 Plt Count 225 K/uL (130-400) 10/20/22 18:19 MPV 10.0 fL (9.4-12.4) 10/20/22 18:19 Immature Gran % (Auto) 0.8 % 10/20/22 18:19 Neut % (Auto) 92.4 % 10/20/22 18:19 Lymph % (Auto) 3.8 % 10/20/22 18:19 Frio % (Auto) 2.7 % 10/20/22 18:19 Eos % (Auto) 0.1 % 10/20/22 18:19 Baso % (Auto) 0.2 % 10/20/22 18:19 Neut # (Auto) 16.36 K/uL (1.40-6.50) H 10/20/22 18:19 Lymph # (Auto) 0.67 K/uL (1.2-3.4) L 10/20/22 18:19 Frio # (Auto) 0.48 K/uL (0.11-0.59) 10/20/22 18:19 Eos # (Auto) 0.02 K/uL (0-0.50) 10/20/22 18:19 Baso # (Auto) 0.03 K/uL (0-0.2) 10/20/22 18:19 Immature Gran # (Auto) 0.15 K/uL (0.01-0.20) 10/20/22 18:19 Sodium 135 mmol/L (136-145) L 10/20/22 18:19 Potassium 4.1 mmol/L (3.5-5.1) 10/20/22 18:19 Chloride 99 mmol/L (98-107) 10/20/22 18:19 Carbon Dioxide 22 mmol/L (21-32) 10/20/22 18:19 Anion Gap 14 (3-11) H 10/20/22 18:19 BUN 28 mg/dl (6-23) H 10/20/22 18:19 Creatinine 1.35 mg/dl (0.6-1.4) 10/20/22 18:19 Est Cr Clr Drug Dosing 42.6 ml/min 10/20/22 18:19 Est GFR ( Amer) 59.5 ml/min 10/20/22 18:19 Est GFR (Non-Af Amer) 51.4 ml/min 10/20/22 18:19 BUN/Creatinine Ratio 20.7 (10-20) H 10/20/22 18:19 Glucose 78 mg/dl (70-99(Fasting)) 10/20/22 18:19 Lactate 1.0 mmol/L (0.4-2.0) 10/20/22 21:05 Calcium 9.4 mg/dl (8.6-10.3) 10/20/22 18:19 Magnesium 1.9 mg/dl (1.7-2.4) 10/20/22 18:19 Total Bilirubin 0.7 mg/dl (0.2-1.0) 10/20/22 18:19 Direct Bilirubin 0.2 mg/dl (0-0.2) 10/20/22 18:19 AST 21 U/L (13-39) 10/20/22 18:19 ALT 14 U/L (7-52) 10/20/22 18:19 Alkaline Phosphatase 122 U/L (34-104) H 10/20/22 18:19 Total Protein 6.8 gm/dl (6.0-8.3) 10/20/22 18:19 Albumin 3.6 gm/dl (3.4-5.0) 10/20/22 18:19 Procalcitonin 28.33 ng/ml (0-0.5) H 10/20/22 18:19 SARS-CoV-2, RNA, NAAT NEGATIVE (NEGATIVE) 10/20/22 19:42 Impressions Abdomen/Pelvis CT 10/20/22 18:07 Exam(s): CT ABDOMEN + PELVIS With Contrast IV Amt: 90ml EXAM: CT Abdomen and Pelvis With Intravenous Contrast CLINICAL HISTORY: Reason for exam: abd pain; vomiting; recent liver resect and cholec. TECHNIQUE: Axial computed tomography images of the abdomen and pelvis with intravenous contrast. CTDI is 9.74 mGy and DLP is 443.32 mGy-cm. Automated exposure control was utilized for the study. A dose lowering technique was utilized adhering to the principles of ALARA. CONTRAST: Patient received 90ml of IV contrast COMPARISON: No relevant prior studies available. FINDINGS: Lung bases: Unremarkable. No mass. No consolidation. ABDOMEN: Liver: Status post left hepatectomy. Minimal simple appearing fluid adjacent to the surgical margin. Several low densities in the right lobe of the liver measuring up to 1.1 cm consistent with simple cysts. Gallbladder and bile ducts: Unremarkable. No calcified stones. No ductal dilation. Pancreas: Unremarkable. No mass. No ductal dilation. Spleen: Unremarkable. No splenomegaly. Adrenals: Unremarkable. No mass. Kidneys and ureters: 3 cm simple cyst arising off the lower pole of the right kidney. No further workup is required. No hydronephrosis. Stomach and bowel: Unremarkable. No obstruction. No mucosal thickening. PELVIS: Appendix: No findings to suggest acute appendicitis. Bladder: Unremarkable. No mass. Reproductive: Unremarkable as visualized. ABDOMEN and PELVIS: Intraperitoneal space: Unremarkable. No free air. No significant fluid collection. Bones/joints: No acute fracture. No dislocation. Soft tissues: Unremarkable. Vasculature: Gallbladder has been removed. 3.2 cm infrarenal abdominal aortic aneurysm without evidence of rupture. Lymph nodes: Unremarkable. No enlarged lymph nodes. IMPRESSION: No acute findings in the abdomen or pelvis. Status post left hepatectomy. Minimal simple appearing fluid adjacent to the surgical margin. 3.2 cm infrarenal abdominal aortic aneurysm without evidence of rupture. Electronically signed by: Carl Harrison M.D. 10/20/22 22:21 PM Chest X-Ray 10/20/22 18:07 XR chest 1V portable HISTORY: 72 years-old Male Sepsis acute sepsis COMPARISON: CT abdomen and pelvis of same day TECHNIQUE: AP view of the chest FINDINGS: Cardiomediastinal and hilar silhouettes are within normal limits. No pneumothorax, pleural effusion, airspace consolidation or pulmonary edema. Spondylotic spurring of the spine with mid thoracic dextroscoliosis. IMPRESSION: No acute process. ACT 112: Negative or not required by law. The above report was generated using voice recognition software. It may contain grammatical, syntax or spelling errors. Electronically signed by: Sean Bartholomew M.D. 10/20/2022 8:07 PM ECG Additional Comments: ECG normal sinus rhythm with a rate of 83. Possible left atrial enlargement. No acute ST changes seen. Code Status & VTE Plan VTE Prophylaxis Plan VTE Prophylaxis will be ordered: Yes
[2022-10-21] MEDS ORDERED: NITROGLYCERIN SL 0.4 MG/TAB TAB SL PRN (00:49)
[2022-10-21] MEDS ORDERED: ONDANSETRON INJ 2 MG/ML 2 ML VIAL IV PRN (00:49)
[2022-10-21] MEDS ORDERED: MoRPHine SULFATE 4 MG/ML 1 ML CARP\\VIAL IV PRN (00:49)
[2022-10-21] MEDS: SODIUM CHLORIDE 0.9% 1000ML 1,000 ML IV SCH ×3 (02:29→16:19)
--- NOTE | 2022-10-21 03:47 | Surgery Consultation ---
Date of Consultation October 21, 2022 Assessment & Plan (1) Sepsis: The patient has been admitted on the hospitalist service. The cause of patient's sepsis has not yet been ascertained Thus far the patient has been treated with broad-spectrum antibiotics in the form of vancomycin and Zosyn. Antibiotics have been continued by the primary service. Blood cultures have been sent and these results should be followed. Would also be beneficial for patient to have a urinalysis and culture as this has not been collected but has been ordered. Chest x-ray does not demonstrate pneumonia. The patient's surgical incisions do not appear infected. Would recommend continuing supportive care with intravenous fluids and broad- spectrum antibiotics until further culture data is back Additional recommendations will be forthcoming based on his clinical course as it unfolds Supervising Physician Co-Signing Physician Notes Dr. Cortezpatient is in his hospital room he is awake and alert he is in no distress-he appears to be doing relatively well His abdomen is flat and soft, his incisions look very good with no erythema or induration He has no real tenderness except his right subcostal incision-I do not think this is from infection CT scan shows no evidence of acute activity I do not believe the patient requires urgent surgical intervention-if this were the case he would need to be transferred back to [place] most likely History of Present Illness Reason for Consultation: Abdominal pain/nausea and vomiting with history of recent surgery Attending Physician: Juliet Alvarenga MD History of Present Illness This is a 72-year-old male with a complicated surgical history. Patient says that he was in [facility] on July 03 of this year where he underwent an abdominal aortic aneurysm repair. He said this was performed in an open fashion. Patient notes 2 to 3 weeks later he developed a liver infection and was sent to [facility] in [facility]. He notes on October 03 of this year he underwent surgical resection of a portion of his liver along with cholecystectomy secondary to some type of obstructive process in his liver. Patient notes that he did well in the hospital and was hospitalized for 5 days and was discharged directly home. Since discharge home from his most recent surgical procedure the patient says that he has had a poor appetite with a 30 pound weight loss. He says upon return home he was prescribed an antibiotic which she finished approximately 5 days ago. Patient says since return home he has had 1 bowel movement but denies any bright blood per rectum or melena. He has had several episodes of shakes which are then followed by nausea and vomiting. When he vomits he denies any hematemesis or blood and notes that his shakes resolved but this process has recurred several times. He does note some shortness of breath with exertion but denies any cough. He denies any fevers. Patient notes he is urinating without difficulty and denies any dysuria. In addition he notes he just reports some g eneralized weakness but denies any other complaints. Since arrival to the hospital the patient has had labs and imaging which I independent reviewed. CT scan of the abdomen pelvis showed no evidence of pneumothorax, pleural effusion, or pneumonia. A CT scan of the abdomen and pelvis was performed that showed that patient was status post left hepatectomy with with minimal fluid near the surgical margin. There were no masses in the viewed lung moore on this study. There is no free air or significant fluid collections intra-abdominal space. The patient was status postcholecystectomy. Labs include a CBC her white blood cell count was elevated at 17.7. Hemoglobin and hematocrit were 10.4 and 31.9. Platelet count was within normal range. Chemistry profile showed sodium was 135 with a normal potassium. BUN had a slight elevation at 28 with a normal creatinine. There is no elevation of patient's LFTs other than slight elevation of the alkaline phosphatase at 122. Procalcitonin was elevated at 28.33. Initially upon arrival lactic acid level was elevated at 2.9 and this was repeated 2 hours later and was noted to be within the normal range. Since arrival to hospital the patient has been treated with antibiotics in the form of vancomycin and Zosyn. He has received intravenous fluids, antiemetics, and analgesics in the form of acetaminophen. At the time of my interview he was resting comfortably in bed, he was in no distress, and noted minimal abdominal pain. Concerning past medical history the patient has hyperlipidemia, and peripheral vascular disease. Concerning past surgical history he has had a abdominal aortic aneurysm repair, cholecystectomy, and partial liver resection Allergies Allergy/AdvReac Type Severity Reaction Status Date / Time No Known Allergies Allergy Verified 10/20/22 19:36 Home Medications Medication Instructions Recorded Confirmed Type aspirin 81 mg tablet,delayed 81 mg PO DAILY 10/20/22 10/20/22 History release atorvastatin 80 mg tablet 80 mg PO QAM 10/20/22 10/20/22 History ezetimibe 10 mg tablet 10 mg PO QAM 10/20/22 10/20/22 History ibuprofen 600 mg tablet 600 mg PO Q6H PRN Pain 10/20/22 10/20/22 History meloxicam 15 mg tablet 15 mg PO DAILY 10/20/22 10/20/22 History multivitamin 1 tab PO DAILY 10/20/22 10/20/22 History oxycodone 10 mg tablet 10 mg PO Q6H PRN Pain 10/20/22 10/20/22 History spironolactone 25 mg tablet 25 mg PO DAILY 10/20/22 10/20/22 History Patient History Family History Father Coronary heart disease Stroke Social History Smoking Status: Former smoker packs per day: 1; Smoking End Date: 06/01/2022; Hx Alcohol Use: No Hx Substance Use: No Preferred Language: Kazakh Communication Ability: Effective Customs Inspector Required: No Beliefs That Will Affect Care: None Current Living Situation: Spouse Current Living Situation Comment: Lives at home with Other Information That Helps Us Care for You: No Feels Safe at Home: Yes Safety Concerns: Feels Safe At This Time Review of Systems Constitutional: no fever Ear, Nose, Mouth, Throat: no hearing loss Respiratory: + dyspnea on exertion; no cough Cardiovascular: no chest pain Gastrointestinal: + abdominal pain, + nausea and + vomiting Genitourinary: no dysuria Musculoskeletal: no back pain Integumentary: no rash Neurologic: no localized weakness Physical Exam Constitutional: WD/WN, vitals as above ENMT: Ears: no hearing impairment and no external ear abnormality Mouth: no oropharynx abnormality Neck: trachea midline Respiratory: normal respiratory effort; no respiratory distress and no labored breathing Cardiovascular: Rate/Rhythm: regular rate and regular rhythm Vessels: dorsalis pedis pulses present and radial pulses present Gastrointestinal (Abdomen): Abdomen is soft and nondistended. It is nonrigid. The patient had a well- healed midline incision from previous abdominal aortic aneurysm repair. Patient also had a Nirav incision that also appear to be healing well. There is no drainage or open areas of any of his incisions. At the time of my exam the patient had minimal pain with palpation of his abdomen. Any pain that was elicited was near his healing surgical incisions. Musculoskeletal: No calf tenderness, feet are warm and well-perfused, pedal pulses are palpable Skin: no rashes Neurologic: moves all extremities Psychiatric: A+Ox3, euthymic affect Results & Data Vital Signs (Past 12 Hours) Vital Signs Temp Pulse Pulse Resp BP BP Pulse Ox 10/21/22 03:00 37.1 C 80 17 92/56 L 95 10/21/22 01:12 75 10/21/22 01:00 37.1 C 87 18 90/52 L 95 10/21/22 00:45 37.1 C 87 21 90/52 L 95 10/21/22 00:20 92 H 18 95 10/21/22 00:10 93 H 20 93 10/21/22 00:25 95 H 18 80/53 L 98 10/21/22 00:00 95 H 22 92 10/21/22 00:00 80/53 L 10/20/22 23:51 99/56 L 10/20/22 23:51 99 H 23 91 10/20/22 23:50 101 H 19 92 10/20/22 23:40 97 H 19 93 10/20/22 23:30 97 H 19 91 10/20/22 23:20 101 H 20 92 10/20/22 23:10 98 H 18 94 10/20/22 23:00 95 H 21 97 10/20/22 23:00 119/76 10/20/22 22:50 98 H 23 10/20/22 22:40 95 H 22 10/20/22 22:31 88 25 H 10/20/22 22:31 124/62 10/20/22 22:30 94 H 24 10/20/22 22:20 79 18 10/20/22 22:00 81 10/20/22 22:10 89 19 92 10/20/22 22:00 82 19 99 10/20/22 22:00 103/67 10/20/22 21:50 86 17 98 10/20/22 21:40 79 17 98 10/20/22 21:30 83 16 99 10/20/22 21:30 91/55 L 10/20/22 21:20 82 18 97 10/20/22 21:10 80 14 99 10/20/22 21:00 80 18 98 10/20/22 21:00 94/62 L 10/20/22 20:50 85 12 99 10/20/22 20:40 82 24 98 10/20/22 21:45 10/20/22 20:30 84 16 100 10/20/22 20:30 89/55 L 10/20/22 20:27 99 10/20/22 19:40 85 24 100 10/20/22 19:39 91/54 L 10/20/22 19:39 85 18 99 10/20/22 19:31 85/60 L 10/20/22 19:31 87 24 97 10/20/22 19:30 87 21 99 10/20/22 19:20 87 16 98 10/20/22 19:10 86 20 96 10/20/22 19:00 85 18 97 10/20/22 18:50 86 16 100 10/20/22 18:40 87 22 100 10/20/22 18:30 82 24 97 10/20/22 18:30 97/59 L 10/20/22 18:20 86 20 10/20/22 18:10 86 21 10/20/22 18:08 87 23 10/20/22 18:30 82 18 97/59 L 94 10/20/22 18:10 94 H 10/20/22 17:57 36.5 C 110 H 19 65/32 L 97 O2 Del Method 10/21/22 03:00 Room Air 10/21/22 01:12 10/21/22 01:00 Room Air 10/21/22 00:45 Room Air 10/21/22 00:20 10/21/22 00:10 10/21/22 00:25 Room Air 10/21/22 00:00 10/21/22 00:00 10/20/22 23:51 10/20/22 23:51 10/20/22 23:50 10/20/22 23:40 10/20/22 23:30 10/20/22 23:20 10/20/22 23:10 10/20/22 23:00 10/20/22 23:00 10/20/22 22:50 10/20/22 22:40 10/20/22 22:31 10/20/22 22:31 10/20/22 22:30 10/20/22 22:20 10/20/22 22:00 10/20/22 22:10 10/20/22 22:00 10/20/22 22:00 10/20/22 21:50 10/20/22 21:40 10/20/22 21:30 10/20/22 21:30 10/20/22 21:20 10/20/22 21:10 10/20/22 21:00 10/20/22 21:00 10/20/22 20:50 10/20/22 20:40 10/20/22 21:45 Room Air 10/20/22 20:30 10/20/22 20:30 10/20/22 20:27 10/20/22 19:40 10/20/22 19:39 10/20/22 19:39 10/20/22 19:31 10/20/22 19:31 10/20/22 19:30 10/20/22 19:20 10/20/22 19:10 10/20/22 19:00 10/20/22 18:50 10/20/22 18:40 10/20/22 18:30 10/20/22 18:30 10/20/22 18:20 10/20/22 18:10 10/20/22 18:08 10/20/22 18:30 Room Air 10/20/22 18:10 10/20/22 17:57 Room Air PG Care Time/CCT Total # of Minutes Spent Total Time Spent with Patient: Total time spent is greater than 50% in coordination of care (as documented) at patient's floor/unit and/or counseling patient: Coding Level of Care Code 58587 INT INP/OBS CARE 3/75MIN Diagnoses Sepsis A41.9
[2022-10-21] MEDS: PIPERACILLIN/TAZOBACTAM 4.5 GM in DEXTROSE 5% 100 ML IV SCH ×3 (04:05→19:44)
[2022-10-21 05:56] LABS: A calco-baum cmplx NotReported Not Detected (NotDetected); Bact fragilis Not Reported Not Detected (NotDetected); C auris Not Reported Not Detected (NotDetected); Calbicans Not Reported Not Detected (NotDetected); Candida glabrata Not Reported Not Detected (NotDetected); Candida krusei Not Reported Not Detected (NotDetected); Cneoformans/gatti Not Reported Not Detected (NotDetected); Cparapsilosis Not Reported Not Detected (NotDetected); Ctropicalis Not Reported Not Detected (NotDetected); E cloacae compx Not Reported Not Detected (NotDetected); Efaecalis Not Reported Not Detected (NotDetected); Efaecium Not Reported DETECTED (NotDetected); Enterobacterales Not Reported Not Detected (NotDetected); Escherichia coli Not Reported Not Detected (NotDetected); H influenzae Not Reported Not Detected (NotDetected); K aerogenes Not Reported Not Detected (NotDetected); Koxytoca Not Reported Not Detected (NotDetected); Kpneumoniae grp Not Reported Not Detected (NotDetected); Lmonocyt Not Reported Not Detected (NotDetected); N meningitidis Not Reported Not Detected (NotDetected); P aeruginosa Not Reported Not Detected (NotDetected); Proteus spp Not Reported Not Detected (NotDetected); Salmonella spp Not Reported Not Detected (NotDetected); Smarcescens Not Reported Not Detected (NotDetected); Staph lugdunensis Not Reported Not Detected (NotDetected); Staph spp. Not Reported Not Detected (NotDetected); Staphaureus Not Reported Not Detected (NotDetected); Staphepi Not Reported Not Detected (NotDetected); Stenmaltophilia Not Reported Not Detected (NotDetected); Strep agal(GrpB) Not Reported Not Detected (NotDetected); Strep pneum Not Reported Not Detected (NotDetected); Strep pyog (GrpA) Not Reported Not Detected (NotDetected); Strep spp Not Reported Not Detected (NotDetected)
[2022-10-21] MEDS ORDERED: VANCOMYCIN HCL 1,000 MG in SODIUM CHLORIDE 0.9% 250 ML IV SCH (06:00)
[2022-10-21 06:21] LABS: Basophils # (auto) 0.01 K/uL (0-0.2); Basophils % (auto) 0.1 %; Hematocrit (blood only) 29.9 % (42.0-52.0); Immature Granulocytes # (auto) 0.05 K/uL (0.01-0.20); Immature Granulocytes % (auto) 0.5 %; Lymphocytes # (auto) 0.56 K/uL (1.2-3.4); Lymphocytes % (auto) 5.9 %; Mean Corpuscular Hemoglobin 28.7 pg (25.0-34.0); Mean Corpuscular Hgb Conc 33.4 g/dL (32.0-36.0); Mean Corpuscular Volume 85.9 fL (80.0-100.0); Mean Platelet Volume 9.8 fL (9.4-12.4); Monocytes # (auto) 0.49 K/uL (0.11-0.59); Monocytes % (auto) 5.1 %; Neutrophils # (auto) 8.44 K/uL (1.40-6.50); Neutrophils % (auto) 88.4 %; Platelet Count 159 K/uL (130-400); RDW Coefficient of Variation 14.9 % (11.5-14.5); RDW Standard Deviation 46.5 fL (36.4-46.3); Red Blood Count 3.48 M/uL (4.70-6.10); White Blood Count 9.55 K/ul (4.8-10.8)
[2022-10-21 06:24] LABS: VanAB Resistant Gene VRE DETECTED (NotDetected)
[2022-10-21 06:25] LABS: Enterococcus faecium DETECTED (NotDetected)
--- NOTE | 2022-10-21 06:32 | Pharmacy Report ---
Pharmacy PK ABX Note - Date of Service October 21, 2022 - Assessment and Plan Assessment * Mr Peterson is a 72 year old M receiving vancomycin/Zosyn for treatment of sepsis/?postop infection. * Pt has a complicated surgical history: * AAA s/p surgery June 2022 -- developed an infection 2-3 weeks post-op and was hospitalized in [place] * Cholecystectomy and liver resection September 2022 -- pt was prescribed an abx on discharge, which he finished ~5 days ago. Pt has been generally unwell since. * On admission: WBC 17.7, lactate 2.9, procal 28.33. Pt reports shaking/weakness/N/V * Pt was initiated on broad spectrum abx empirically. Surgical consult placed. Plan Vancomycin * Loading dose: 1250 mg IV x 1 * Maintenance dose: 1000 mg IV every 18 hours * Regimen is predicted to achieve above target AUC/PACO of 400-600 mg/L.hr, but not for several days. Will utilize more aggressive regimen until vanc levels are closer to steady-state, at which time we may need to back off on dosing. * Will evaluate a vanc level in 1-2 days, or sooner if indicated. Pharmacy will continue to follow and will adjust dose/frequency as necessary. Thank you. Pharmacy has transitioned to AUC monitoring for vancomycin. AUC/PACO is the preferred PK/PD target and is associated with decreased risk of nephrotoxicity compared to traditional trough targets.
[2022-10-21 06:35] LABS: Calcium 8.1 mg/dl (8.6-10.3); Creatinine Clr Calc Pharmacy 58.2 ml/min; Est GFR (African American) 85.6 ml/min; Est GFR (Non-African American) 73.8 ml/min; Magnesium 1.9 mg/dl (1.7-2.4); Potassium 4.1 mmol/L (3.5-5.1)
[2022-10-21] MEDS ORDERED: LINEZOLID 600 MG/300 ML D5W IV SCH (06:40)
--- NOTE | 2022-10-21 06:51 | Communication Note ---
Date of Service: October 21, 2022 Surgery recommended to check with his surgeon at [facility] if he needs to be transferred as he recently had surgery. Rakesh says he had Surgery done by Live r surgeon at [facility] in [place]. Called office and was advised to call Med call no( To be called if patient in ER or admitted): [phone] and was answered by . As No significant fluid around liver and his lfts ok advised to workup other causes for his sepsis. Was ok to call back them if anything changes. Blood cultures came back as VRE. UA is still p ending.After discussing with pharmacy changed iv vanco to iv Zyvox for now.Lactic acid normalized. WBC improving.Needs close monitor.
--- NOTE | 2022-10-21 07:03 | Electrocardiogram Report ---
Test Reason : Blood Pressure : / mmHG Vent. Rate : 083 BPM Atrial Rate : 083 BPM P-R Int : 148 ms QRS Dur : 080 ms QT Int : 358 ms P-R-T Axes : 079 077 073 degrees QTc Int : 420 ms Normal sinus rhythm Possible Left atrial enlargement Low voltage QRS Borderline ECG No previous ECGs available Confirmed by Mathew Gastelum ([id number]) on 10/21/2022 7:03:35 AM Referred By: REFERRED SELF Confirmed By:Ike Gastelum
[2022-10-21] MEDS: LINEZOLID 600 MG/300 ML BAG IV SCH ×2 (07:20→19:09)
[2022-10-21 07:27] LABS: Appearance Urine Clear (Clear); Bilirubin Urine Negative (Negative); Blood Urine Negative (Negative); Color Urine Dark Yellow; Epithelial Cell Urine Auto >30 /lpf (0-5); Glucose Urine UA Negative (Negative); Ketones Urine Trace (Negative); Leukocyte Esterase Urine Negative (Negative); Nitrite Urine Negative (Negative); Protein Urine Trace (Negative); RBC Urine Automated 0-4 /hpf (0-4); Specific Gravity Urine > 1.045 (1.000-1.030); Urobilinogen Urine Negative (Negative)
[2022-10-21 07:49] LABS: Bacteria Urine Automated 1+ (Negative)
[2022-10-21] MEDS: MULTIVITAMIN TAB PO SCH (08:13)
[2022-10-21] MEDS: ATORVASTATIN 40 MG TAB PO SCH (08:13)
[2022-10-21] MEDS: EZETIMIBE 10 MG TABLET PO SCH (08:13)
[2022-10-21] MEDS: ENOXAPARIN INJ 40 MG/0.4 ML SYR SQ SCH (08:14)
[2022-10-21] MEDS: ASPIRIN 81 MG ECTAB PO SCH (08:14)
--- NOTE | 2022-10-21 11:55 | Hospitalist Progress Note ---
Date of Service October 21, 2022 Assessment & Plan (1) Sepsis: Plan: 72-year-old male with past medical significant hyperlipidemia, AAA s/p surgery in July 03, 2022, s/p surgery for cholecystectomy and liver resection on October 05, 2022 at [facility] for infected gallbladder and clogged liver as per patient and biopsy benign as per patient Comes because of chills nausea and vomiting and abdominal pain. He got Augmentin for about 7 days following surgery on [address] abdomen pelvis with IV contrast is okay. Elevated leukocytosis and procalcitonin, noted to be tachycardic initially and also tachypneic very briefly He was started on iv vancomycin and IV Zosyn Intravenous vancomycin was changed to intravenous Zyvox following blood culture report of [place] with VRE Blood culture is positive for gram-positive cocci in chain and serology confirmed to be VRE and enterococcal faecium We will get an ID consult Appreciate surgery consult and input-discussed with the surgeon at [facility] by the night hospitalist and was advised the patient can be man aged here until there is no fluid collection or abscess at the surgery area and the condition remains stable Patient remained stable and has been feeling better Continue with cautious amount of IV fluid and other supportive care Hyperlipidemia Continue statin and ezetimibe. History of AAA S/p surgery Continue aspirin and statin. Blood pressure remains on the lower side at systolic 98/52 DVT prophylaxis Lovenox Disposition Close monitoring telemetry floor CODE STATUS Full code (2) Elevated procalcitonin: (3) Leukocytosis: Admission and Anticipated Discharge Date Admission Date: October 21, 2022 Subjective 10/21/2022 The patient was seen and examined in telemetry unit He has been feeling much better and denies any significant abdominal pain, nausea and or vomiting, no fever and or chills Denies any chest pain, palpitation or shortness of breath Review of Systems Review of Systems: All systems reviewed and are unremarkable except as noted below Gastrointestinal: Minimal pain at the staple site Physical Exam Physical Exam: Lying in bed comfortably Constitutional: + ill appearing and + thin Eyes: PERRL, conjunctivae normal, anicteric sclerae ENMT: external ear and nose normal, oropharynx normal Neck: trachea midline, no thyromegaly Respiratory: no respiratory distress Auscultation: lungs clear to auscultation bilaterally Cardiovascular: Rate/Rhythm: regular rate and regular rhythm; not tachycardic Heart Sounds: normal S1 and normal S2; no murmur Extremities: no edema Gastrointestinal (Abdomen): Inspection/Auscultation: normal bowel sounds and + abdominal surgical incision (Site remains unremarkable and the tam are in site); abdomen not distended and no abdominal surgical drain present Percussion/Palpation: + abdomen tender (Minimally tender at the surgery site over right upper quadrant) and abdomen soft Musculoskeletal: No acute arthritis involving any joint Neurologic: normal touch/pain/proprioception and moves all extremities; no fo miranda motor deficits Psychiatric: A+Ox3, euthymic affect Lymphatic: no cervical or axillary lymphadenopathy Results & Data Results & Data Vital Signs (Past 12 Hours) Vital Signs Temp Pulse Pulse Resp BP BP Pulse Ox 10/21/22 11:29 36.9 C 74 16 98/52 L 90 10/21/22 07:51 36.8 C 70 16 93/58 L 93 10/21/22 03:00 37.1 C 80 17 92/56 L 95 10/21/22 01:12 75 10/21/22 01:00 37.1 C 87 18 90/52 L 95 10/21/22 00:45 37.1 C 87 21 90/52 L 95 10/21/22 00:20 92 H 18 95 10/21/22 00:10 93 H 20 93 10/21/22 00:25 95 H 18 80/53 L 98 10/21/22 00:00 95 H 22 92 10/21/22 00:00 80/53 L 10/20/22 23:51 99/56 L 10/20/22 23:51 99 H 23 91 10/20/22 23:50 101 H 19 92 O2 Del Method 10/21/22 11:29 Room Air 10/21/22 07:51 Room Air 10/21/22 03:00 Room Air 10/21/22 01:12 10/21/22 01:00 Room Air 10/21/22 00:45 Room Air 10/21/22 00:20 10/21/22 00:10 10/21/22 00:25 Room Air 10/21/22 00:00 10/21/22 00:00 10/20/22 23:51 10/20/22 23:51 10/20/22 23:50 Laboratory Results Short CBC 10/20/22 10/21/22 Range/Units 18:19 05:14 WBC 17.71 H 9.55 (4.8-10.8) K/ul Hgb 10.4 L 10.0 L (14.0-18.0) g/dl Hct 31.9 L 29.9 L (42.0-52.0) % Plt Count 225 159 (130-400) K/uL BMP 10/20/22 10/21/22 18:19 05:14 Sodium 135 L 135 L Potassium 4.1 4.1 Chloride 99 106 Carbon Dioxide 22 24 BUN 28 H 26 H Creatinine 1.35 1.00 D Glucose 78 99 Calcium 9.4 8.1 L Liver Function 10/20/22 Range/Units 18:19 Total Bilirubin 0.7 (0.2-1.0) mg/dl Direct Bilirubin 0.2 (0-0.2) mg/dl AST 21 (13-39) U/L ALT 14 (7-52) U/L Alkaline Phosphatase 122 H (34-104) U/L Albumin 3.6 (3.4-5.0) gm/dl Urine 10/21/22 Range/Units 05:56 Urine Color Dark Yellow Urine Appearance Clear (Clear) Urine pH 5.0 (4.5-7.5) Ur Specific [place] > 1.045 H (1.000-1.030) Urine Protein Trace H (Negative) Urine Glucose (UA) Negative (Negative) Medications Administered Current Inpatient Medications Acetaminophen (Acetaminophen 325 Mg Tab) 650 mg PO Q4H PRN PRN Reason: Pain or Fever Stop: 11/20/22 00:48 Aspirin (Aspirin 81 Mg Ectab) 81 mg PO DAILY [facility] Stop: 11/20/22 08:59 Last Admin: 10/21/22 08:14 Dose: 81 mg Atorvastatin Calcium (Atorvastatin 40 Mg Tab) 80 mg PO QAM [facility] Stop: 11/20/22 08:59 Last Admin: 10/21/22 08:13 Dose: 80 mg Ezetimibe (Ezetimibe 10 Mg Tablet) 10 mg PO QAM [facility] Stop: 11/20/22 08:59 Last Admin: 10/21/22 08:13 Dose: 10 mg Enoxaparin Sodium (Enoxaparin Inj 40 Mg/0.4 Ml Syr) 40 mg SQ Q24H [facility] Stop: 11/20/22 08:59 Last Admin: 10/21/22 08:14 Dose: 40 mg Piperacillin Sod/Tazobactam (Sod 4.5 gm/ Dextrose) 120 mls @ 30 mls/hr IV Q8H [facility]; Protocol Stop: 10/31/22 03:59 Last Infusion: 10/21/22 08:14 Dose: Infused Sodium Chloride (Nss 1000ml) 1,000 mls @ 125 mls/hr IV .Q8H [facility] Stop: 11/20/22 00:48 Last Admin: 10/21/22 09:40 Dose: 125 mls/hr Linezolid (Zyvox) 600 mg in 300 mls @ 200 mls/hr IV Q12H [facility] Stop: 10/31/22 06:59 Last Infusion: 10/21/22 08:50 Dose: Infused Morphine Sulfate (Morphine Sulfate 4 Mg/Ml 1 Ml Carp\Vial) 3 mg IV Q4H PRN PRN Reason: Pain Stop: 11/04/22 00:48 Multivitamins (Multivitamin Tab) 1 tab PO DAILY [facility] Stop: 11/20/22 08:59 Last Admin: 10/21/22 08:13 Dose: 1 tab Nitroglycerin (Nitroglycerin Sl 0.4 Mg/Tab Tab) 0.4 mg SL Q5M PRN PRN Reason: Chest Pain Stop: 11/20/22 00:48 Ondansetron HCl (Ondansetron Inj 2 Mg/Ml 2 Ml Vial) 4 mg IV Q6H PRN PRN Reason: Nausea Stop: 11/20/22 00:48
[2022-10-21] MEDS ORDERED: POLYETHYLENE (MIRALAX) 17 GM PACK PO ONE (14:15)
[2022-10-21] MEDS: ACETAMINOPHEN 325 MG TAB PO PRN (20:18)
[2022-10-21] MEDS ORDERED: oxyCODONE HCL IR 5 MG TAB (IMMEDIATE RELEASE) PO PRN (22:19)
[2022-10-22] MEDS: SODIUM CHLORIDE 0.9% 1000ML 1,000 ML IV SCH ×4 (00:02→23:40)
[2022-10-22] MEDS: PIPERACILLIN/TAZOBACTAM 4.5 GM in DEXTROSE 5% 100 ML IV SCH ×3 (03:21→19:13)
[2022-10-22] MEDS ORDERED: MoRPHine SULFATE 4 MG/ML 1 ML CARP\\VIAL IV PRN (04:57)
[2022-10-22] MEDS: oxyCODONE HCL IR 5 MG TAB (IMMEDIATE RELEASE) PO PRN ×3 (05:22→21:49)
[2022-10-22 05:50] LABS: Basophils # (auto) 0.01 K/uL (0-0.2); Basophils % (auto) 0.2 %; Eosinophils # (auto) 0.06 K/uL (0-0.50); Eosinophils % (auto) 1.1 %; Hemoglobin 9.3 g/dl (14.0-18.0); Immature Granulocytes # (auto) 0.02 K/uL (0.01-0.20); Immature Granulocytes % (auto) 0.4 %; Lymphocytes # (auto) 0.69 K/uL (1.2-3.4); Lymphocytes % (auto) 12.8 %; Mean Corpuscular Hemoglobin 28.9 pg (25.0-34.0); Mean Corpuscular Hgb Conc 33.2 g/dL (32.0-36.0); Mean Platelet Volume 10.1 fL (9.4-12.4); Monocytes # (auto) 0.38 K/uL (0.11-0.59); Monocytes % (auto) 7.1 %; Neutrophils # (auto) 4.23 K/uL (1.40-6.50); Neutrophils % (auto) 78.4 %; Platelet Count 131 K/uL (130-400); RDW Coefficient of Variation 14.8 % (11.5-14.5); RDW Standard Deviation 47.6 fL (36.4-46.3); Red Blood Count 3.22 M/uL (4.70-6.10); White Blood Count 5.39 K/ul (4.8-10.8)
[2022-10-22 06:32] LABS: Albumin Level 2.3 gm/dl (3.4-5.0); Bilirubin,Total 0.4 mg/dl (0.2-1.0); Calcium 7.6 mg/dl (8.6-10.3); Creatinine Clr Calc Pharmacy 84.6 ml/min; Est GFR (African American) 105.3 ml/min; Est GFR (Non-African American) 90.9 ml/min; Globulin 2.2 gm/dl (2.5-4.0); Magnesium 1.7 mg/dl (1.7-2.4); Phosphorus 2.4 mg/dl (2.5-4.9); Potassium 3.7 mmol/L (3.5-5.1); Total Protein 4.5 gm/dl (6.0-8.3)
[2022-10-22] MEDS: LINEZOLID 600 MG/300 ML BAG IV SCH ×2 (06:43→19:13)
[2022-10-22] MEDS: ASPIRIN 81 MG ECTAB PO SCH (09:33)
[2022-10-22] MEDS: ATORVASTATIN 40 MG TAB PO SCH (09:34)
[2022-10-22] MEDS: MULTIVITAMIN TAB PO SCH (09:34)
[2022-10-22] MEDS: ENOXAPARIN INJ 40 MG/0.4 ML SYR SQ SCH (09:34)
[2022-10-22] MEDS: EZETIMIBE 10 MG TABLET PO SCH (09:34)
--- NOTE | 2022-10-22 10:43 | Hospitalist Progress Note ---
Date of Service October 22, 2022 Assessment & Plan (1) Sepsis: Plan: 72-year-old male with past medical significant hyperlipidemia, AAA s/p surgery in July 03, 2022, s/p surgery for cholecystectomy and liver resection on October 05, 2022 at [facility] for infected gallbladder and clogged liver as per patient and biopsy benign as per patient Comes because of chills nausea and vomiting and abdominal pain. He got Augmentin for about 7 days following surgery on [address] abdomen pelvis with IV contrast is okay. Elevated leukocytosis and procalcitonin, noted to be tachycardic initially and also tachypneic very briefly He was started on iv vancomycin and IV Zosyn Intravenous vancomycin was changed to intravenous Zyvox following blood culture report of [place] with VRE Blood culture is positive for gram-positive cocci in chain and serology confirmed to be VRE and enterococcal faecium We will get an ID consult Appreciate surgery consult and input-discussed with the surgeon at [facility] by the night hospitalist and was advised the patient can be ma naged here until there is no fluid collection or abscess at the surgery area and the condition remains stable Patient remained stable and has been feeling better Continue with cautious amount of IV fluid and other supportive care Clinically much better and will continue with the current antibiotics Will get an echo to rule out any vegetations and also there is suspicious for endarteritis following the repair of the abdominal aortic aneurysm History of AAA on 07/03/2022 S/p surgery Continue aspirin and statin. Has had fever following abdominal aorta repair on July 03, 2022 and required hospitalization Not sure the kind of antibiotic he received during the hospitalization We will get records from the [facility] Hyperlipidemia Continue statin and ezetimibe. DVT prophylaxis Lovenox Disposition Close monitoring telemetry floor CODE STATUS Full code (2) Elevated procalcitonin: (3) Leukocytosis: Admission and Anticipated Discharge Date Admission Date: October 21, 2022 Subjective 10/21/2022 The patient was seen and examined in telemetry unit He has been feeling much better and denies any significant abdominal pain, nausea and or vomiting, no fever and or chills Denies any chest pain, palpitation or shortness of breath 10/22/2022 The patient was seen and examined in telemetry unit He has been feeling much better and denies any significant symptoms except has nausea last evening following meals No fever and or chills, no abdominal distention Review of Systems Review of Systems: All systems reviewed and are unremarkable except as noted below Gastrointestinal: Minimal pain at the staple site Physical Exam Physical Exam: Lying in bed comfortably Constitutional: + ill appearing and + thin Eyes: PERRL, conjunctivae normal, anicteric sclerae ENMT: external ear and nose normal, oropharynx normal Neck: trachea midline, no thyromegaly Respiratory: no respiratory distress Auscultation: lungs clear to auscultation bilaterally Cardiovascular: Rate/Rhythm: regular rate and regular rhythm; not tachycardic Heart Sounds: normal S1 and normal S2; no murmur Extremities: no edema Gastrointestinal (Abdomen): Inspection/Auscultation: normal bowel sounds and + abdominal surgical incision (Site remains unremarkable and the tam are in site); abdomen not distended and no abdominal surgical drain present Percussion/Palpation: + abdomen tender (Minimally tender at the surgery site over right upper quadrant) and abdomen soft Neurologic: normal touch/pain/proprioception and moves all extremities; no focal motor deficits Psychiatric: A+Ox3, euthymic affect Lymphatic: no cervical or axillary lymphadenopathy Results & Data Results & Data Vital Signs (Past 12 Hours) Vital Signs Temp Pulse Resp BP Pulse Ox O2 Del Method 10/22/22 07:42 36.9 C 79 18 119/73 94 Room Air 10/22/22 03:37 36.8 C 75 18 110/63 97 Room Air 10/21/22 23:00 36.9 C 81 18 93/55 L 94 Room Air Laboratory Results Short CBC 10/22/22 Range/Units 04:54 WBC 5.39 (4.8-10.8) K/ul Hgb 9.3 L (14.0-18.0) g/dl Hct 28.0 L (42.0-52.0) % Plt Count 131 (130-400) K/uL BMP 10/22/22 04:54 Sodium 135 L Potassium 3.7 Chloride 108 H Carbon Dioxide 23 BUN 17 Creatinine 0.74 Glucose 95 Calcium 7.6 L Liver Function 10/22/22 Range/Units 04:54 Total Bilirubin 0.4 (0.2-1.0) mg/dl AST 17 (13-39) U/L ALT 12 (7-52) U/L Alkaline Phosphatase 80 (34-104) U/L Albumin 2.3 L (3.4-5.0) gm/dl Medications Administered Current Inpatient Medications Acetaminophen (Acetaminophen 325 Mg Tab) 650 mg PO Q4H PRN PRN Reason: Pain or Fever Stop: 11/20/22 00:48 Last Admin: 10/21/22 20:18 Dose: 650 mg Aspirin (Aspirin 81 Mg Ectab) 81 mg PO DAILY [facility] Stop: 11/20/22 08:59 Last Admin: 10/22/22 09:33 Dose: 81 mg Atorvastatin Calcium (Atorvastatin 40 Mg Tab) 80 mg PO QAM [facility] Stop: 11/20/22 08:59 Last Admin: 10/22/22 09:34 Dose: 80 mg Ezetimibe (Ezetimibe 10 Mg Tablet) 10 mg PO [facility] Stop: 11/20/22 08:59 Last Admin: 10/22/22 09:34 Dose: 10 mg Enoxaparin Sodium (Enoxaparin Inj 40 Mg/0.4 Ml Syr) 40 mg SQ Q24H [facility] Stop: 11/20/22 08:59 Last Admin: 10/22/22 09:34 Dose: 40 mg Piperacillin Sod/Tazobactam (Sod 4.5 gm/ Dextrose) 120 mls @ 30 mls/hr IV Q8H [facility]; Protocol Stop: 10/31/22 03:59 Last Admin: 10/22/22 03:21 Dose: 30 mls/hr Sodium Chloride (Nss 1000ml) 1,000 mls @ 125 mls/hr IV .Q8H [facility] Stop: 11/20/22 00:48 Last Admin: 10/22/22 09:33 Dose: 125 mls/hr Linezolid (Zyvox) 600 mg in 300 mls @ 200 mls/hr IV Q12H [facility] Stop: 10/31/22 06:59 Last Admin: 10/22/22 06:43 Dose: 200 mls/hr Morphine Sulfate (Morphine Sulfate 4 Mg/Ml 1 Ml Carp\Vial) 3 mg IV Q4H PRN PRN Reason: Severe Pain (Scale 7, 8, 9,10) Stop: 11/04/22 00:48 Multivitamins (Multivitamin Tab) 1 tab PO DAILY [facility] Stop: 11/20/22 08:59 Last Admin: 10/22/22 09:34 Dose: 1 tab Nitroglycerin (Nitroglycerin Sl 0.4 Mg/Tab Tab) 0.4 mg SL Q5M PRN PRN Reason: Chest Pain Stop: 11/20/22 00:48 Ondansetron HCl (Ondansetron Inj 2 Mg/Ml 2 Ml Vial) 4 mg IV Q6H PRN PRN Reason: Nausea Stop: 11/20/22 00:48 Oxycodone HCl (Oxycodone Hcl Ir 5 Mg Tab (Immediate Release)) 5 mg PO Q6H PRN PRN Reason: Moderate Pain (Scale 4, 5, 6) Stop: 11/04/22 22:18 Last Admin: 10/22/22 05:22 Dose: 5 mg
[2022-10-22] MEDS: ACETAMINOPHEN 325 MG TAB PO PRN ×2 (15:25→21:48)
--- NOTE | 2022-10-22 18:10 | Electrocardiogram Report ---
Test Reason : Blood Pressure : / mmHG Vent. Rate : 076 BPM Atrial Rate : 076 BPM P-R Int : 166 ms QRS Dur : 094 ms QT Int : 376 ms P-R-T Axes : 071 057 064 degrees QTc Int : 423 ms Sinus rhythm with Premature atrial complexes Low voltage QRS Borderline ECG When compared with ECG of 20-OCT-2022 18:21, Premature atrial complexes are now Present Confirmed by Mathew Gastelum ([id number]) on 10/22/2022 6:09:48 PM Referred By: REFERRED SELF Confirmed By:Ike Gastelum
[2022-10-23] MEDS: ACETAMINOPHEN 325 MG TAB PO PRN ×2 (03:39→14:43)
[2022-10-23] MEDS: oxyCODONE HCL IR 5 MG TAB (IMMEDIATE RELEASE) PO PRN ×3 (03:40→19:56)
[2022-10-23] MEDS: PIPERACILLIN/TAZOBACTAM 4.5 GM in DEXTROSE 5% 100 ML IV SCH ×2 (03:42→11:23)
--- NOTE | 2022-10-23 05:40 | Surgery Progress Note ---
Date of Service October 23, 2022 Assessment & Plan (1) Sepsis: Plan: Patient is clinically stable Blood cultures positive for Enterococcus-status postcholecystectomy and left hepatic resection Liver functions normal Urine culture essentially negative so far No overt intra-abdominal collections, abscess or extraluminal gas Does not appear to have significant fluid around his aortic graft Echo negative but may need a transesophageal echocardiogram Await infectious disease evaluation Does not appear to require urgent surgical intervention which would likely require transfer to [place] Admission and Anticipated Discharge Date Admission Date: October 21, 2022 Results & Data Vital Signs (Past 12 Hours) Vital Signs Temp Pulse Pulse Resp BP Pulse Ox O2 Del Method 10/23/22 03:45 36.5 C 80 18 123/79 95 Room Air 10/22/22 21:57 83 10/22/22 22:21 37.2 C 79 18 112/62 94 Room Air 10/22/22 19:03 37.0 C 84 18 126/77 96 Room Air PG Care Time/CCT Total # of Minutes Spent Total Time Spent with Patient: Total time spent is greater than 50% in coordination of care (as documented) at patient's floor/unit and/or counseling patient: Coding Level of Care Code None Diagnoses Sepsis A41.9
[2022-10-23] MEDS: LINEZOLID 600 MG/300 ML BAG IV SCH (06:28)
[2022-10-23] MEDS: SODIUM CHLORIDE 0.9% 1000ML 1,000 ML IV SCH ×3 (07:35→23:04)
[2022-10-23] MEDS: ASPIRIN 81 MG ECTAB PO SCH (08:08)
[2022-10-23] MEDS: ENOXAPARIN INJ 40 MG/0.4 ML SYR SQ SCH (08:08)
[2022-10-23] MEDS: ATORVASTATIN 40 MG TAB PO SCH (08:09)
[2022-10-23] MEDS: EZETIMIBE 10 MG TABLET PO SCH (08:09)
[2022-10-23] MEDS: MULTIVITAMIN TAB PO SCH (08:10)
[2022-10-23] MEDS ORDERED: DAPTOmycin 725 MG in SYRINGE 0 ML IV SCH (14:00)
[2022-10-23] MEDS: DAPTOmycin 700 MG in SYRINGE 0 ML IV SCH (15:13)
--- NOTE | 2022-10-23 15:29 | Hospitalist Progress Note ---
Date of Service October 23, 2022 Assessment & Plan (1) Sepsis: Plan: 72-year-old male with past medical significant hyperlipidemia, AAA s/p surgery in July 03, 2022, s/p surgery for cholecystectomy and liver resection on October 05, 2022 at [place] for infected gallbladder and clogged liver as per patient and biopsy benign as per patient Comes because of chills nausea and vomiting and abdominal pain. He got Augmentin for about 7 days following surgery on [address] abdomen pelvis with IV contrast is okay. Elevated leukocytosis and procalcitonin, noted to be tachycardic initially and also tachypneic very briefly He was started on iv vancomycin and IV Zosyn Intravenous vancomycin was changed to intravenous Zyvox following blood culture report of [place] with VRE Blood culture is positive for gram-positive cocci in chain and serology confirmed to be VRE and enterococcal faecium We will get an ID consult Appreciate surgery consult and input-discussed with the surgeon at [facility] by the night hospitalist and was advised the patient can be ma naged here until there is no fluid collection or abscess at the surgery area and the condition remains stable Patient remained stable and has been feeling better Continue with cautious amount of IV fluid and other supportive care Clinically much better and will continue with the current antibiotics Will get an echo to rule out any vegetations and also there is suspicious for endarteritis following the repair of the abdominal aortic aneurysm Echo has been unremarkable-no vegetations at least in TTE Appreciate ID input and recommendation:antibiotic will be changed to intravenous daptomycin and to be continued for about 6 to 8 weeks in total, will get repeat blood cultures every 48 hours until clear, if the blood culture remains positive will get ENRIQUE to rule out infective endocarditis and will check CK every week as long as she the patient is on daptomycin Will need to have a PICC line History of AAA on 07/03/2022 S/p surgery Continue aspirin and statin. Has had fever following abdominal aorta repair on July 03, 2022 and required hospitalization Not sure the kind of antibiotic he received during the hospitalization We will get records from the [facility] Complains to epigastric discomfort Will try Protonix Hyperlipidemia Continue statin and ezetimibe. DVT prophylaxis Lovenox Disposition Close monitoring telemetry floor CODE STATUS Full code (2) Elevated procalcitonin: (3) Leukocytosis: Admission and Anticipated Discharge Date Admission Date: October 21, 2022 Subjective 10/21/2022 The patient was seen and examined in telemetry unit He has been feeling much better and denies any significant abdominal pain, na usea and or vomiting, no fever and or chills Denies any chest pain, palpitation or shortness of breath 10/22/2022 The patient was seen and examined in telemetry unit He has been feeling much better and denies any significant symptoms except has nausea last evening following meals No fever and or chills, no abdominal distention 10/23/2022 The patient was seen and examined in the telemetry unit He has been feeling much better without any significant symptoms except some abdominal discomfort He denies any chest pain, palpitation or shortness of breath No fever and or chills Review of Systems Review of Systems: All systems reviewed and are unremarkable except as noted below Gastrointestinal: Minimal pain at the staple site Physical Exam Physical Exam: Lying in bed comfortably Constitutional: + ill appearing and + thin Eyes: PERRL, conjunctivae normal, anicteric sclerae ENMT: external ear and nose normal, oropharynx normal Neck: trachea midline, no thyromegaly Respiratory: no respiratory distress Auscultation: lungs clear to auscultation bilaterally Cardiovascular: Rate/Rhythm: regular rate and regular rhythm; not tachycardic Heart Sounds: normal S1 and normal S2; no murmur Extremities: no edema Gastrointestinal (Abdomen): Inspection/Auscultation: normal bowel sounds and + abdominal surgical incision (Site remains unremarkable and the tam are in site); abdomen not distended and no abdominal surgical drain present Percussion/Palpation: + abdomen tender (Minimally tender at the surgery site over right upper quadrant) and abdomen soft Musculoskeletal: No acute arthritis involving any of the joint Neurologic: normal touch/pain/proprioception and moves all extremities; no focal motor deficits Psychiatric: A+Ox3, euthymic affect Lymphatic: no cervical or axillary lymphadenopathy Results & Data Results & Data Vital Signs (Past 12 Hours) Vital Signs Temp Pulse Pulse Resp BP Pulse Ox O2 Del Method 10/23/22 15:10 117 H 10/23/22 11:34 37.0 C 87 16 138/82 95 Room Air 10/23/22 09:22 80 10/23/22 07:32 37.1 C 80 16 151/80 H 94 Room Air 10/23/22 03:45 36.5 C 80 18 123/79 95 Room Air Medications Administered Current Inpatient Medications Acetaminophen (Acetaminophen 325 Mg Tab) 650 mg PO Q4H PRN PRN Reason: Pain or Fever Stop: 11/20/22 00:48 Last Admin: 10/23/22 14:43 Dose: 650 mg Aspirin (Aspirin 81 Mg Ectab) 81 mg PO DAILY [facility] Stop: 11/20/22 08:59 Last Admin: 10/23/22 08:08 Dose: 81 mg Atorvastatin Calcium (Atorvastatin 40 Mg Tab) 80 mg PO QAM [facility] Stop: 11/20/22 08:59 Last Admin: 10/23/22 08:09 Dose: 80 mg Ezetimibe (Ezetimibe 10 Mg Tablet) 10 mg PO QAM [facility] Stop: 11/20/22 08:59 Last Admin: 10/23/22 08:09 Dose: 10 mg Enoxaparin Sodium (Enoxaparin Inj 40 Mg/0.4 Ml Syr) 40 mg SQ Q24H [facility] Stop: 11/20/22 08:59 Last Admin: 10/23/22 08:08 Dose: 40 mg Sodium Chloride (Nss 1000ml) 1,000 mls @ 125 mls/hr IV .Q8H [facility] Stop: 11/20/22 00:48 Last Admin: 10/23/22 15:00 Dose: 125 mls/hr Daptomycin 700 mg/ Syringe 14 mls @ 7 mls/min IV Q24H [facility]; Protocol Stop: 11/06/22 13:59 Last Admin: 10/23/22 15:13 Dose: 7 mls/min Morphine Sulfate (Morphine Sulfate 4 Mg/Ml 1 Ml Carp\Vial) 3 mg IV Q4H PRN PRN Reason: Severe Pain (Scale 7, 8, 9,10) Stop: 11/04/22 00:48 Multivitamins (Multivitamin Tab) 1 tab PO DAILY [facility] Stop: 11/20/22 08:59 Last Admin: 10/23/22 08:10 Dose: 1 tab Nitroglycerin (Nitroglycerin Sl 0.4 Mg/Tab Tab) 0.4 mg SL Q5M PRN PRN Reason: Chest Pain Stop: 11/20/22 00:48 Ondansetron HCl (Ondansetron Inj 2 Mg/Ml 2 Ml Vial) 4 mg IV Q6H PRN PRN Reason: Nausea Stop: 11/20/22 00:48 Oxycodone HCl (Oxycodone Hcl Ir 5 Mg Tab (Immediate Release)) 5 mg PO Q6H PRN PRN Reason: Moderate Pain (Scale 4, 5, 6) Stop: 11/04/22 22:18 Last Admin: 10/23/22 11:41 Dose: 5 mg Pantoprazole Sodium (Pantoprazole 40 Mg Tab) 40 mg PO [facility] Stop: 11/22/22 15:29
[2022-10-23] MEDS: PANTOprazole 40 MG TAB PO SCH (16:03)
[2022-10-24] MEDS: SODIUM CHLORIDE 0.9% 1000ML 1,000 ML IV SCH ×2 (06:46→17:37)
[2022-10-24 06:48] LABS: Basophils # (auto) 0.01 K/uL (0-0.2); Basophils % (auto) 0.1 %; Eosinophils # (auto) 0.04 K/uL (0-0.50); Eosinophils % (auto) 0.4 %; Hematocrit (blood only) 29.1 % (42.0-52.0); Hemoglobin 9.8 g/dl (14.0-18.0); Immature Granulocytes # (auto) 0.03 K/uL (0.01-0.20); Immature Granulocytes % (auto) 0.3 %; Lymphocytes # (auto) 1.39 K/uL (1.2-3.4); Lymphocytes % (auto) 15.2 %; Mean Corpuscular Hemoglobin 28.6 pg (25.0-34.0); Mean Corpuscular Hgb Conc 33.7 g/dL (32.0-36.0); Mean Corpuscular Volume 84.8 fL (80.0-100.0); Mean Platelet Volume 10.1 fL (9.4-12.4); Monocytes # (auto) 0.73 K/uL (0.11-0.59); Neutrophils # (auto) 6.92 K/uL (1.40-6.50); Platelet Count 147 K/uL (130-400); RDW Coefficient of Variation 14.3 % (11.5-14.5); RDW Standard Deviation 44.3 fL (36.4-46.3); Red Blood Count 3.43 M/uL (4.70-6.10); White Blood Count 9.12 K/ul (4.8-10.8)
[2022-10-24 07:08] LABS: BUN Creatinine Ratio 15.8 (10-20); Calcium 7.6 mg/dl (8.6-10.3); Creatinine Clr Calc Pharmacy 114.8 ml/min; Est GFR (African American) 117.2 ml/min; Est GFR (Non-African American) 101.2 ml/min; Potassium 3.4 mmol/L (3.5-5.1)
[2022-10-24] MEDS ORDERED: POTASSIUM CHLORIDE CRTAB 20 MEQ TABCR PO STA (09:02)
[2022-10-24] MEDS: MULTIVITAMIN TAB PO SCH (09:10)
[2022-10-24] MEDS: PANTOprazole 40 MG TAB PO SCH (09:10)
[2022-10-24] MEDS: EZETIMIBE 10 MG TABLET PO SCH (09:10)
[2022-10-24] MEDS: ASPIRIN 81 MG ECTAB PO SCH (09:10)
[2022-10-24] MEDS: ENOXAPARIN INJ 40 MG/0.4 ML SYR SQ SCH (09:11)
[2022-10-24] MEDS: oxyCODONE HCL IR 5 MG TAB (IMMEDIATE RELEASE) PO PRN ×2 (09:17→22:03)
[2022-10-24] MEDS: ADVANCED PROBIOTIC 1250 MG CAPSULE PO SCH (12:36)
--- NOTE | 2022-10-24 13:02 | Discharge Summary ---
Date of Service October 24, 2022 Admission HPI Per Admitting Provider This is a 72-year-old male with past medical significant for hyperlipidemia, abdominal aortic aneurysm s/p surgery in June 2022 at [place], s/p surgery for cholecystectomy and part of liver taken out on October 05, 2022 at [place] as per patient for infected gallbladder and clogging of the left liver ducts. Patient says the biopsy results just came as benign. Patient is from [facility].. Patient states he followed up after surgery with PCP 1 week later and found to have systolic blood pressure in 80s. PCP discussed the surgery at [place] and was recommended to drink a lot of water and Gatorade and diuretics which were started after surgery with stopped. He states his blood pressure is improved to 100s. Patient states that usually his blood pressure is in 110/ 70 range. Patient states that after his AAA surgery in June 1 week later he was in [facility] for infection. Patient says they could not figure out where the infection is coming from but thought probably from gallbladder. Patient th inks his infection never went away. After his gallbladder and liver surgery he was on antibiotics which was done few days ago. Patient was camping close to [facility] and last night he had shaking chills and was nauseous and after vomiting his symptoms resolved. Again in the morning he had similar symptoms of shaking chills and and got resolved after vomiting. He also noticed his vision was very bright but his pupils were pinpoint . At this time it was decided to bring him to the hospital. On the way to the hospital his vision was again bright but sunglasses helped. Currently his vision is okay. His blood pressure was soft in the ER. Was nauseous. Has elevated white count and elevated procalcitonin. CT abdomen pelvis was okay. Urine sample is pending. Says has some pain at the incision site. Has shortness of breath on exertion. Denies any headache. Has some dizziness because his blood pressure is soft. No runny nose no sore throat. No cough. Afebrile. Had normal bowel movement yesterday. Denies any blood in the stools or black stools. Normal micturition as per the patient. Past medical history as mentioned above. Past surgical history s/p AAA repair surgery, s/p cholecystectomy and liver resection, history of penile implant Discharge Data Allergies Allergy/AdvReac Type Severity Reaction Status Date / Time No Known Allergies Allergy Verified 10/20/22 19:36 Consultations 10/20/22 22:42 ED Decision to Admit Stat 10/21/22 03:47 HIM [Consult Health Information Management] Routine 10/21/22 08:00 Consult General Surgery Routine 10/21/22 08:34 Consult Infectious Diseases Routine Ordered Studies 10/20/22 18:07 CT Abd and Pelvis [CT abd pelvis IV con only] Stat Discharge Plan Discharge Items Reason For Visit: ABDOMINAL PAIN Follow-up/Referrals: Luis Lemons DO [Primary Care Provider] - Medications and DC Order Prescriptions: No Action multivitamin Tablet 1 tab PO DAILY atorvastatin 80 mg tablet 80 mg PO QAM meloxicam 15 mg tablet 15 mg PO DAILY aspirin 81 mg Tablet,Delayed Release (Dr/Ec) 81 mg PO DAILY spironolactone 25 mg tablet 25 mg PO DAILY Rx Instructions: STARTED 10/09/22 FOR 14 DAYS. ibuprofen 600 mg tablet 600 mg PO Q6H PRN (Reason: Pain) ezetimibe 10 mg tablet 10 mg PO QAM oxycodone 10 mg tablet 10 mg PO Q6H PRN (Reason: Pain) Admission Data Admit Date/Time: 10/21/22 00:00 Attending Provider: Juliet Alvarenga Admit Provider: Bill Luna Primary Care Provider: Luis Lemons Other Providers: Bill Luna ; Chris Cortez ; Jatinder Kirk ; Que Coleman ; Eddie Vásquez I. ; Unruly Cope II ; Jennie Cadet ; Wilbert Ulrich ; Chris Miranda ; Allyssa Moore
--- NOTE | 2022-10-24 13:07 | Hospitalist Progress Note ---
Date of Service October 24, 2022 Assessment & Plan (1) Sepsis: Plan: 72-year-old male with past medical significant hyperlipidemia, AAA s/p surgery in July 03, 2022, s/p surgery for cholecystectomy and liver resection on October 05, 2022 at [place] for infected gallbladder and clogged liver as per patient and biopsy benign as per patient Comes because of chills nausea and vomiting and abdominal pain. He got Augmentin for about 7 days following surgery on [address] abdomen pelvis with IV contrast is okay. 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 We will get an ID consult Appreciate surgery consult and input-discussed with the surgeon at [facility] by the night hospitalist and was advised the patient can be ma naged here until there is no fluid collection or abscess at the surgery area and the condition remains stable Patient remained stable and has been feeling better Continue with cautious amount of IV fluid and other supportive care Clinically much better and will continue with the current antibiotics Will get an echo to rule out any vegetations and also there is suspicious for endarteritis following the repair of the abdominal aortic aneurysm Echo has been unremarkable-no vegetations at least in TTE Appreciate ID input and recommendation:antibiotic will be changed to intravenous daptomycin and to be continued for about 6 to 8 weeks in total, will get repeat blood cultures every 48 hours until clear, if the blood culture remains positive will get ENRIQUE to rule out infective endocarditis and will check CK every week as long as she the patient is on daptomycin Will need to have a PICC line PT OT evaluation prior to discharge History of AAA on 07/03/2022 S/p surgery Continue aspirin and statin. Has had fever following abdominal aorta repair on July 03, 2022 and required hospitalization Not sure the kind of antibiotic he received during the hospitalization We will get records from the [facility] Complains to epigastric discomfort Will try Protonix Has minimal abdominal distention with colicky pain after food with some nausea and no significant vomiting Will get KUB-result is pending Has exaggerated bowel sound so doubt any obstruction If symptoms continues will need a CT scan Hyperlipidemia Continue statin and ezetimibe. Statin is on hold as he has been on daptomycin DVT prophylaxis Lovenox Disposition Close monitoring telemetry floor CODE STATUS Full code (2) Elevated procalcitonin: (3) Leukocytosis: Admission and Anticipated Discharge Date Admission Date: October 21, 2022 Subjective 10/21/2022 The patient was seen and examined in telemetry unit He has been feeling much better and denies any significant abdominal pain, nausea and or vomiting, no fever and or chills Denies any chest pain, palpitation or shortness of breath 10/22/2022 The patient was seen and examined in telemetry unit He has been feeling much better and denies any significant symptoms except has nausea last evening following meals No fever and or chills, no abdominal distention 10/23/2022 The patient was seen and examined in the telemetry unit He has been feeling much better without any significant symptoms except some abdominal discomfort He denies any chest pain, palpitation or shortness of breath No fever and or chills 10/24/2022 The patient was seen and examined in telemetry unit He has been complaining of abdominal pain following meals without any problem with swallowing Has had nausea and very occasional vomiting as well with minimal abdominal distention Bowel movement yesterday but he has been passing gas He denies any fever and or chills Review of Systems Review of Systems: All systems reviewed and are unremarkable except as noted below Gastrointestinal: Minimal pain at the staple site Physical Exam Physical Exam: Lying in bed comfortably and is anxious Constitutional: + ill appearing and + thin Eyes: PERRL, conjunctivae normal, anicteric sclerae ENMT: external ear and nose normal, oropharynx normal Neck: trachea midline, no thyromegaly Respiratory: no respiratory distress Auscultation: lungs clear to auscultation bilaterally Cardiovascular: Rate/Rhythm: regular rate and regular rhythm; not tachycardic Heart Sounds: normal S1 and normal S2; no murmur Extremities: no edema Gastrointestinal (Abdomen): Inspection/Auscultation: + abdomen distended (Minimally distended but soft), normal bowel sounds and + abdominal surgical incision (Site remains unremarkable and the tam are in site); no abdominal surgical drain present Percussion/Palpation: + abdomen tender (Minimally t nguyen at the surgery site over right upper quadrant) and abdomen soft Musculoskeletal: No acute arthritis involving any of the joint Neurologic: normal touch/pain/proprioception and moves all extremities; no focal motor deficits Psychiatric: A+Ox3, euthymic affect Lymphatic: no cervical or axillary lymphadenopathy Results & Data Results & Data Vital Signs (Past 12 Hours) Vital Signs Temp Pulse Pulse Resp BP BP Pulse Ox 10/24/22 11:00 37.2 C 96 H 18 126/81 96 10/24/22 07:58 89 10/24/22 07:28 37.0 C 94 H 18 141/79 H 94 10/24/22 02:53 36.9 C 89 18 135/79 94 O2 Del Method 10/24/22 11:00 Room Air 10/24/22 07:58 10/24/22 07:28 Room Air 10/24/22 02:53 Room Air Laboratory Results Short CBC 10/24/22 Range/Units 06:11 WBC 9.12 (4.8-10.8) K/ul Hgb 9.8 L (14.0-18.0) g/dl Hct 29.1 L (42.0-52.0) % Plt Count 147 (130-400) K/uL BMP 10/24/22 06:11 Sodium 136 Potassium 3.4 L Chloride 107 Carbon Dioxide 23 BUN 9 Creatinine 0.57 L Glucose 67 L Calcium 7.6 L Cardiac Enzymes 10/24/22 Range/Units 06:11 Total Creatine Kinase 19 L (30-223) U/L Medications Administered Current Inpatient Medications Acetaminophen (Acetaminophen 325 Mg Tab) 650 mg PO Q4H PRN PRN Reason: Pain or Fever Stop: 11/20/22 00:48 Last Admin: 10/23/22 14:43 Dose: 650 mg Aspirin (Aspirin 81 Mg Ectab) 81 mg PO DAILY [facility] Stop: 11/20/22 08:59 Last Admin: 10/24/22 09:10 Dose: 81 mg Atorvastatin Calcium (Atorvastatin 40 Mg Tab) 80 mg PO QAM [facility] Stop: 11/20/22 08:59 Last Admin: 10/23/22 08:09 Dose: 80 mg Ezetimibe (Ezetimibe 10 Mg Tablet) 10 mg PO QAM [facility] Stop: 11/20/22 08:59 Last Admin: 10/24/22 09:10 Dose: 10 mg Enoxaparin Sodium (Enoxaparin Inj 40 Mg/0.4 Ml Syr) 40 mg SQ Q24H [facility] Stop: 11/20/22 08:59 Last Admin: 10/24/22 09:11 Dose: 40 mg Sodium Chloride (Nss 1000ml) 1,000 mls @ 80 mls/hr IV .[id number] [facility] Stop: 11/20/22 00:48 Last Infusion: 10/24/22 11:08 Dose: 80 mls/hr Daptomycin 700 mg/ Syringe 14 mls @ 7 mls/min IV Q24H [facility]; Protocol Stop: 11/06/22 13:59 Last Admin: 10/23/22 15:13 Dose: 7 mls/min Lactobacillus Acidophilus (Advanced Probiotic 1250 Mg Capsule) 2 cap PO DAILY [facility] Stop: 11/23/22 10:44 Last Admin: 10/24/22 12:36 Dose: 2 cap Morphine Sulfate (Morphine Sulfate 4 Mg/Ml 1 Ml Carp\Vial) 3 mg IV Q4H PRN PRN Reason: Severe Pain (Scale 7, 8, 9,10) Stop: 11/04/22 00:48 Multivitamins (Multivitamin Tab) 1 tab PO DAILY [facility] Stop: 11/20/22 08:59 Last Admin: 10/24/22 09:10 Dose: 1 tab Nitroglycerin (Nitroglycerin Sl 0.4 Mg/Tab Tab) 0.4 mg SL Q5M PRN PRN Reason: Chest Pain Stop: 11/20/22 00:48 Ondansetron HCl (Ondansetron Inj 2 Mg/Ml 2 Ml Vial) 4 mg IV Q6H PRN PRN Reason: Nausea Stop: 11/20/22 00:48 Oxycodone HCl (Oxycodone Hcl Ir 5 Mg Tab (Immediate Release)) 5 mg PO Q6H PRN PRN Reason: Moderate Pain (Scale 4, 5, 6) Stop: 11/04/22 22:18 Last Admin: 10/24/22 09:17 Dose: 5 mg Pantoprazole Sodium (Pantoprazole 40 Mg Tab) 40 mg PO QAM [facility] Stop: 11/22/22 15:29 Last Admin: 10/24/22 09:10 Dose: 40 mg
[2022-10-24] MEDS: DAPTOmycin 700 MG in SYRINGE 0 ML IV SCH (13:29)
--- NOTE | 2022-10-24 18:37 | XRay Report ---
KUB CLINICAL HISTORY: Generalized abdominal pain. FINDINGS: 2 AP, portable, supine abdominal radiographs are correlated with abdominal CT dated 3. Surgical clips are scattered throughout the abdomen. Suture material projects over the upper abdom en. There are mildly distended and gas-filled loops of small bowel which measure up to 4 cm diameter. There is gas throughout the colon with no radiographic evidence of high-grade obstruction. No eviden ce of intraperitoneal free air seen on the supine images. There is atherosclerotic calcification of t he abdominal aorta. The skeletal structures are osteopenic and appear intact. There is advanced lumbo sacral spondylosis and mild scoliosis. IMPRESSION: 1. There are mildly distended and gas-filled loops of small bowel with no radiographic evidence of hi gh-grade obstruction. Clinical correlation will be required. 2. No evidence of intraperitoneal free air is seen on these supine images. Electronically signed by: Asael Aaron M.D. 10/24/2022 6:35 PM
--- NOTE | 2022-10-25 05:51 | Surgery Progress Note ---
Date of Service October 25, 2022 Assessment & Plan (1) Sepsis: Plan: Blood cultures from 10/22/22 positive (repeat) will likely need Transesoph echo- R/O mitral valve infection concern also for possible aortic graft infection No indication for gen surg intervention may consider vasc surgery eval - pt had initial surgery in [place] Admission and Anticipated Discharge Date Admission Date: October 21, 2022 Results & Data Vital Signs (Past 12 Hours) Vital Signs Temp Pulse Pulse Resp BP Pulse Ox O2 Del Method 10/25/22 03:08 37.1 C 76 18 122/71 94 Room Air 10/25/22 00:00 95 H 10/24/22 22:55 36.9 C 94 H 18 147/86 H 96 Room Air 10/24/22 19:39 36.8 C 95 H 18 150/87 H 95 Room Air PG Care Time/CCT Total # of Minutes Spent Total Time Spent with Patient: Total time spent is greater than 50% in coordination of care (as documented) at patient's floor/unit and/or counseling patient: Coding Level of Care Code None Diagnoses Sepsis A41.9
[2022-10-25] MEDS: SODIUM CHLORIDE 0.9% 1000ML 1,000 ML IV SCH ×2 (06:05→17:06)
[2022-10-25 07:04] LABS: Basophils # (auto) 0.02 K/uL (0-0.2); Basophils % (auto) 0.2 %; Eosinophils # (auto) 0.06 K/uL (0-0.50); Eosinophils % (auto) 0.7 %; Hematocrit (blood only) 28.4 % (42.0-52.0); Hemoglobin 9.6 g/dl (14.0-18.0); Immature Granulocytes # (auto) 0.03 K/uL (0.01-0.20); Immature Granulocytes % (auto) 0.4 %; Lymphocytes # (auto) 1.35 K/uL (1.2-3.4); Lymphocytes % (auto) 16.4 %; Mean Corpuscular Hemoglobin 28.9 pg (25.0-34.0); Mean Corpuscular Hgb Conc 33.8 g/dL (32.0-36.0); Mean Corpuscular Volume 85.5 fL (80.0-100.0); Mean Platelet Volume 9.7 fL (9.4-12.4); Monocytes # (auto) 0.71 K/uL (0.11-0.59); Monocytes % (auto) 8.6 %; Neutrophils # (auto) 6.06 K/uL (1.40-6.50); Neutrophils % (auto) 73.7 %; Platelet Count 160 K/uL (130-400); RDW Coefficient of Variation 14.8 % (11.5-14.5); Red Blood Count 3.32 M/uL (4.70-6.10); White Blood Count 8.23 K/ul (4.8-10.8)
[2022-10-25 07:35] LABS: BUN Creatinine Ratio 22.2 (10-20); Calcium 7.7 mg/dl (8.6-10.3); Creatinine Clr Calc Pharmacy 125.8 ml/min; Est GFR (African American) 119.9 ml/min; Est GFR (Non-African American) 103.4 ml/min; Magnesium 1.6 mg/dl (1.7-2.4); Phosphorus 2.4 mg/dl (2.5-4.9); Potassium 4.1 mmol/L (3.5-5.1)
[2022-10-25] MEDS: PANTOprazole 40 MG TAB PO SCH (08:53)
[2022-10-25] MEDS: MULTIVITAMIN TAB PO SCH (08:53)
[2022-10-25] MEDS: ENOXAPARIN INJ 40 MG/0.4 ML SYR SQ SCH (08:53)
[2022-10-25] MEDS: ASPIRIN 81 MG ECTAB PO SCH (08:53)
[2022-10-25] MEDS: ADVANCED PROBIOTIC 1250 MG CAPSULE PO SCH (08:54)
[2022-10-25] MEDS: EZETIMIBE 10 MG TABLET PO SCH (08:54)
--- NOTE | 2022-10-25 09:20 | Hospitalist Progress Note ---
Date of Service October 25, 2022 Assessment & Plan (1) Sepsis: Plan: 72yoM with PMHx significant for hyperlipidemia, AAA s/p surgery in July 03, 2022, s/p surgery for cholecystectomy and liver resection on October 05, 2022 at [place] for infected gallbladder, currently with persistent bacteremia. Bacteremia -On IV zosyn and Vanc originally. ID consult- switched to daptomycin Blood Cx still growing bacteria from 10/22- referral placed to cardiology for ENRIQUE, repeat Cx ordered Appreciate general surgery recommendations- recommending vascular surgery consult as well as possible graft infection might be a source ID recs: "antibiotic will be changed to intravenous daptomycin and to be continued for about 6 to 8 weeks in total, will get repeat blood cultures every 48 hours until clear, if the blood culture remains positive will get ENRIQUE to rule out infective endocarditis and will check CK every week as long as she the patient is on daptomycin Will need to have a PICC line" PT OT evaluation prior to discharge History of AAA repair on 07/03/2022 S/p surgery Continue aspirin and statin. Has had fever following abdominal aorta repair on July 03, 2022 and required hospitalization Not sure the kind of antibiotic he received during the hospitalization We will get records from the [facility] Abdominal pain Protonix, advanced diet today. Tolerated well. NPO after mdinight for ENRIQUE, continue fluids until then. KUB-no cause of pain noted Hyperlipidemia On ezetimibe. Statin is on hold as he has been on daptomycin DVT prophylaxis Lovenox Disposition Close monitoring telemetry floor CODE STATUS Full code (2) Elevated procalcitonin: (3) Leukocytosis: Admission and Anticipated Discharge Date Admission Date: October 21, 2022 Subjective seen with at bedside. States he feels great. Denies any abdominal pain except with palpation in the are of recent surgery. Denies fevers, chills or night sweats. Review of Systems Review of Systems: General: Alert, oriented. No acute distress Psych: Appropriate mood and affect Neuro: No gross deficits HEENT: NC/AT CV: RRR Resp: Breath sounds decreased bilaterally, no increased effort of breathing. Abdomen: Soft, tender in RUQ area, nondistended. No guarding. No organomegaly appreciated. Extremities: No edema in lower extremities bilaterally. Results & Data Results & Data Vital Signs (Past 12 Hours) Vital Signs Temp Pulse Pulse Resp BP BP Pulse Ox 10/25/22 08:00 92 H 10/25/22 08:07 37.5 C 82 16 127/75 92 10/25/22 03:08 37.1 C 76 18 122/71 94 10/25/22 00:00 95 H 10/24/22 22:55 36.9 C 94 H 18 147/86 H 96 O2 Del Method 10/25/22 08:00 10/25/22 08:07 Room Air 10/25/22 03:08 Room Air 10/25/22 00:00 10/24/22 22:55 Room Air
[2022-10-25] MEDS: DAPTOmycin 700 MG in SYRINGE 0 ML IV SCH (14:40)
--- NOTE | 2022-10-25 14:45 | Cardiology Consultation ---
Date of Consultation October 25, 2022 Assessment & Plan (1) Sepsis: (2) Abnormal echocardiogram: (3) S/P AAA repair: (4) VRE bacteremia: (5) HTN (hypertension): (6) Dyslipidemia, goal LDL below 70: (7) History of tobacco abuse: Plan NPO after midnight for ENRIQUE with Dr. Roman in the AM of 10/26/2022 Supervising Physician Co-Signing Physician Notes 72-year-old patient admitted with sepsis and persistent VRE bacteremia. Afebrile since admission. Denies chest pain or shortness of breath notes weight loss and fatigue over the past few weeks. Recent surgeries as noted above. PE: VSS. Gen: NAD, AAO x3. Heart: Regular rhytm. Normal S1S2. No murmur. Lungs: clear B/L, no rales, rhonchi, or wheeze. No edema. A/P: Agree with above PA-C history, physical exam, assessment and plan. Risk, benefits, terms of transesophageal echocardiogram discussed. Patient agreeable to proceed. N.p.o. except medications after midnight. History of Present Illness Reason for Consultation: ENRIQUE needed per ID, persistent + blood Cx Requesting Physician: Valeria Attending Physician: Valeria History of Present Illness Mr. Jorden Peterson is a very pleasant 72 year old male who underwent open repair of infrarenal abdominal aortic aneurysm [facility] [address] Choi. Patient recalls being hospitalized shortly following AAA surgery with abdominal pain, fevers, and weakness. Documentation available reveals admission with SIRS, unclear source of infection. Blood cultures revealed pansensitive E.coli treated with Cefazolin. 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 He notes, approximately one week alter, developing fevers and chills, significant other stating "he was throwing up bile" and ultimately an admission with sepsis. He recalls being treated with antibiotic therapy and discharged to home via taxi. More recently he was camping at [facility]. Jarad evening he developed rigors, nausea, and vomiting, as well as trouble focusing ultimately leading to presentation to the [facility]. Blood cultures positive for VRE on October 20, 2022, remaining positive on October 22, 2022. CT of the abdomen and pelvis on presentation showed no acute findings, status post left hepatectomy with minimal simple appearing fluid adjacent to the surgical margin, 3.2 cm infrarenal abdominal aortic aneurysm without evidence of rupture per radiological interpretation. Resting echocardiography on October 22, 2022 demonstrated the following: Mitral valve thickening, including focal calcification and thickening involving the tip of the anterior mitral valve leaflet, mitral valve prolapse, and regurgitation as noted below. No discrete mobile echodensity visualized. Left ventricular systolic function normal. Ejection fraction 55 to 60%. Mild aortic valve sclerosis without significant stenosis. Moderate mitral annular calcification. Severe thickening of the anterior mitral valve leaflet. Focal calcification involving the tips of the mitral valve leaflets. Mild prolapse of the anterior mitral valve leaflet. Mild mitral regurgitation. Mild tricuspid regurgitation. Doppler findings do not suggest pulmonary hypertension. Chest x-ray showed no acute process. Past Medical and Surgical History: Open repair of infrarenal abdominal aortic aneurysm with [facility] Hem[facility]ield [facility] [address] Choi. Open hepatectomy and cholecystectomy on 10/05/22 for cholangitis/choledocholithiasis at [facility] on October 05, 2022, ultimate diagnosis of cholangiocarcinoma. Pulmonary fibrosis Tobacco use disorder, reformed as of June 01, 2022 Hypertension Dyslipidemia GERD Lumbago Cervicalgia Chronic low back pain Congenital spondylolisthesis Degeneration of intervertebral disc, site unspecified Erectile dysfunction status post implant. Bilateral shoulder surgeries. Tonsillectomy/adenoidectomy Edentulous Patient denies prior cardiac history. He specifically denies history of CAD, TX, CHF, arrhythmia, heart murmur, rheumatic fever, or scarlet fever. Family History: Father with a CVA at 60. Mother with a CVA at 78. Social History: Reformed smoker as of June 01, 2022. Alcohol: 3-4 beers m ost days of the week. No illegal drug use. Retired computer systems manager. Complete Review of Systems: Constitutional: 30 pound weight loss over the last 3 months. Fevers and rigors as above. No night sweats. HEENT: No amaurosis fugax. Pulmonary: COPD. Chart history of pulmonary fibrosis. Cardiac: See above. GI/Abd: GERD. No dysphagia. No history of cirrhosis. No history of varicies. No melana or hematochezia. Denies kidney problems. Vascular: Followed by [facility], See above. Hematologic: No coagulation disorder Musculoskeletal: Chronic back pain. Skin: No rash. Neurologic: No history of TIA or CVA Male : See above. Endocrine: No DM or thyroid problems. Complete Review of Systems is as stated above, negative, or noncontributory. Allergies Allergy/AdvReac Type Severity Reaction Status Date / Time No Known Allergies Allergy Verified 10/20/22 19:36 Home Medications Medication Instructions Recorded Confirmed Type aspirin 81 mg tablet,delayed 81 mg PO DAILY 10/20/22 10/20/22 History release atorvastatin 80 mg tablet 80 mg PO QAM 10/20/22 10/20/22 History ezetimibe 10 mg tablet 10 mg PO QAM 10/20/22 10/20/22 History ibuprofen 600 mg tablet 600 mg PO Q6H PRN Pain 10/20/22 10/20/22 History meloxicam 15 mg tablet 15 mg PO DAILY 10/20/22 10/20/22 History multivitamin 1 tab PO DAILY 10/20/22 10/20/22 History oxycodone 10 mg tablet 10 mg PO Q6H PRN Pain 10/20/22 10/20/22 History spironolactone 25 mg tablet 25 mg PO DAILY 10/20/22 10/20/22 History Patient History Family History Father Coronary heart disease Stroke Social History Smoking Status: Former smoker packs per day: 1; Smoking End Date: 06/01/2022; Hx Alcohol Use: No Hx Substance Use: No Preferred Language: Ivorian Communication Ability: Effective Bottle Cleaner Required: No Beliefs That Will Affect Care: None Current Living Situation: Spouse Current Living Situation Comment: Lives at home with Other Information That Helps Us Care for You: No Feels Safe at Home: Yes Safety Concerns: Feels Safe At This Time Assistive Devices: None Physical Exam Physical Exam: General: A&Ox3. NAD. HEENT: Edentuous. Normocephalic. Atraumatic. Eyese: PER. Conjunctiva pink, sclera clear. Neck: Bilateral carotid bruits. No JVD. No HJR. Heart: Irregular. No murmur. No rub. No gallop. PMI is nondisplaced. Lungs: Diminished. Decreased. Clear to auscultation. Abdomen: +BS. Soft. Nontender. No masses or organomegaly. Extremities: No clubbing, cyanosis, or edema. Limited neurological examination is without focal deficits. Pulses: radial=2/4, posterior tibial=1/4. Results & Data Vital Signs (Past 12 Hours) Vital Signs Temp Pulse Pulse Resp BP BP Pulse Ox 10/25/22 11:19 37.2 C 98 H 20 126/77 95 10/25/22 08:00 92 H 10/25/22 08:07 37.5 C 82 16 127/75 92 10/25/22 03:08 37.1 C 76 18 122/71 94 O2 Del Method 10/25/22 11:19 Room Air 10/25/22 08:00 10/25/22 08:07 Room Air 10/25/22 03:08 Room Air Laboratory Results CBC 10/25/22 Range/Units 06:27 WBC 8.23 (4.8-10.8) K/ul RBC 3.32 L (4.70-6.10) M/uL Hgb 9.6 L (14.0-18.0) g/dl Hct 28.4 L (42.0-52.0) % Plt Count 160 (130-400) K/uL Neut # (Auto) 6.06 (1.40-6.50) K/uL Lymph # (Auto) 1.35 (1.2-3.4) K/uL [place] # (Auto) 0.71 H (0.11-0.59) K/uL Eos # (Auto) 0.06 (0-0.50) K/uL Baso # (Auto) 0.02 (0-0.2) K/uL Comprehensive Metabolic Panel 10/25/22 Range/Units 06:27 Sodium 137 (136-145) mmol/L Potassium 4.1 D (3.5-5.1) mmol/L Chloride 108 H (98-107) mmol/L Carbon Dioxide 22 (21-32) mmol/L BUN 12 (6-23) mg/dl Creatinine 0.54 L (0.6-1.4) mg/dl Glucose 74 (70-99(Fasting)) mg/dl Calcium 7.7 L (8.6-10.3) mg/dl Intake and Output 10/24/22 10/25/22 10/25/22 22:59 06:59 14:59 Intake Total 454.167 / 2847.333 1167.333 / 2847.333 Output Total Balance 454.167 / 2846.333 1166.333 / 2846.333 Intake: IV 454.167 / 1997.333 997.333 / 1997.333 Sodium Chloride 0.9% 1000ML 1, 454.167 / 1996.333 997.333 / 1996.333 000 ml @ 80 mls/hr IV .[id number] [facility] Rx#:[id number] Oral 170 / 850 Output: # Bowel Movements Other: # Unmeasured Voids 1 Weight 74.1 kg Weight Measurement Method Built in [facility] Diagnostic Findings Continuous wallpaperer helper reveals sinus rhythm/sinus tachycardia predominantly with one short episode of atrial tachycardia. No atrial fibrillation or flutter. No significant bradycardia or pauses.
[2022-10-25] MEDS: oxyCODONE HCL IR 5 MG TAB (IMMEDIATE RELEASE) PO PRN (20:15)
[2022-10-26] MEDS: SODIUM CHLORIDE 0.9% 1000ML 1,000 ML IV SCH ×2 (03:34→15:51)
[2022-10-26] MEDS ORDERED: BENZOCAINE/TETRACAIN/BUTAM 50 APPLN/5 GM CAN EXT ONE (07:36)
--- NOTE | 2022-10-26 07:39 | Anesthesiology Consultation ---
Date of Service October 26, 2022 Assessment & Plan Chart Review Chart Review: Acceptable Risk for Surgery Consults Requested none ASA ASA3 Proposed Anesthesia Anesthesia Type: MAC Risk / Benefits Reviewed With: PT / POA / Parent / Guardian, Accepts Plan and Informed Consent Obtained History Height/Weight Height: 6 ft 4 in Weight: 74.1 kg Allergies Allergy/AdvReac Type Severity Reaction Status Date / Time No Known Allergies Allergy Verified 10/20/22 19:36 Medications Home Medications Medication Instructions Recorded Confirmed Last Taken aspirin 81 mg tablet,delayed 81 mg PO DAILY 10/20/22 10/20/22 10/20/22 release atorvastatin 80 mg tablet 80 mg PO QAM 10/20/22 10/20/22 10/20/22 ezetimibe 10 mg tablet 10 mg PO QAM 10/20/22 10/20/22 10/20/22 ibuprofen 600 mg tablet 600 mg PO Q6H PRN Pain 10/20/22 10/20/22 Unknown meloxicam 15 mg tablet 15 mg PO DAILY 10/20/22 10/20/22 10/20/22 multivitamin 1 tab PO DAILY 10/20/22 10/20/22 10/20/22 oxycodone 10 mg tablet 10 mg PO Q6H PRN Pain 10/20/22 10/20/22 Unknown spironolactone 25 mg tablet 25 mg PO DAILY 10/20/22 10/20/22 10/20/22 Active Medications Generic Name Dose Route Start Last Admin Trade Name Geraq PRN Reason Stop Dose Admin Acetaminophen 650 mg 10/21/22 00:49 10/23/22 14:43 Acetaminophen 325 Mg Tab PO 11/20/22 00:48 650 mg Q4H PRN Administration Pain or Fever Aspirin 81 mg 10/21/22 09:00 10/25/22 08:53 Aspirin 81 Mg Ectab PO 11/20/22 08:59 81 mg DAILY LASHAWN Administration Atorvastatin Calcium 80 mg 10/21/22 09:00 10/23/22 08:09 Atorvastatin 40 Mg Tab PO 11/20/22 08:59 80 mg QAM LASHAWN Administration Ezetimibe 10 mg 10/21/22 09:00 10/25/22 08:54 Ezetimibe 10 Mg Tablet PO 11/20/22 08:59 10 mg QAM LASHAWN Administration Enoxaparin Sodium 40 mg 10/21/22 09:00 10/25/22 08:53 Enoxaparin Inj 40 Mg/0.4 Ml Syr SQ 11/20/22 08:59 40 mg Q24H LASHAWN Administration Sodium Chloride 1,000 mls @ 80 mls/hr 10/21/22 00:49 10/26/22 03:34 Nss 1000ml IV 11/20/22 00:48 80 mls/hr .[id number] LASHAWN Administration Daptomycin 700 mg/ Syringe 14 mls @ 7 mls/min 10/23/22 14:00 10/25/22 14:40 IV 11/06/22 13:59 7 mls/min Q24H LASHAWN Administration Protocol Lactobacillus Acidophilus 2 cap 10/24/22 10:45 10/25/22 08:54 Advanced Probiotic 1250 Mg Capsule PO 11/23/22 10:44 2 cap DAILY LASHAWN Administration Multivitamins 1 tab 10/21/22 09:00 10/25/22 08:53 Multivitamin Tab PO 11/20/22 08:59 1 tab DAILY LASHAWN Administration Oxycodone HCl 5 mg 10/22/22 04:57 10/25/22 20:15 Oxycodone Hcl Ir 5 Mg Tab (Immediate Release) PO 11/04/22 22:18 5 mg Q6H PRN Administration Moderate Pain (Scale 4, 5, 6) Pantoprazole Sodium 40 mg 10/23/22 15:30 10/25/22 08:53 Pantoprazole 40 Mg Tab PO 11/22/22 15:29 40 mg QAM LASHAWN Administration NPO Date Last Intake of Fluids: 10/25/22 Time Last Intake of Fluids: 19:00 Date Last Intake of Solids: 10/25/22 Time Last Intake of Solids: 19:00 Exercise / Class Metabolic Activity II 4-5 Yardwork/Stairs/Walk up hill Past Family History Family History Father Coronary heart disease Stroke Past Anesthesia History No Hx of Anesthesia Complications and No Family Hx of Anesthesia Complications History of PONV No Hx of PONV and No Hx of Motion Sickness Social History Smoking Status: Former smoker Smoking End Date: 06/01/2022 Hx Alcohol Use: No Hx Substance Use: No Physical Exam Vital Signs Last Vital Signs Temp 98.1 F 10/26/22 02:46 Pulse 91 H 10/26/22 07:22 Resp 20 10/26/22 02:46 BP 133/67 10/26/22 02:46 Pulse Ox 98 10/26/22 02:46 O2 Del Method Room Air 10/26/22 02:46 ENMT Mouth: + edentulous Thyromental Distance: > or= 3.5 Finger Breadths Mallampati Class: II Neck normal visual inspection Respiratory normal respiratory effort Auscultation: lungs clear to auscultation bilaterally Cardiovascular Rate/Rhythm: regular rate and regular rhythm Testing Laboratory Results 10/25/22 06:27 10/25/22 06:27 Urine Color Dark Yellow 10/21/22 05:56 Urine Appearance Clear (Clear) 10/21/22 05:56 Urine pH 5.0 (4.5-7.5) 10/21/22 05:56 Ur Specific [place] > 1.045 (1.000-1.030) H 10/21/22 05:56 Urine Protein Trace (Negative) H 10/21/22 05:56 Urine Glucose (UA) Negative (Negative) 10/21/22 05:56 Urine Ketones Trace (Negative) H 10/21/22 05:56 Urine Nitrite Negative (Negative) 10/21/22 05:56 Ur Leukocyte Esterase Negative (Negative) 10/21/22 05:56 Urine WBC (Auto) 10-30 /hpf (0-5) H 10/21/22 05:56 Urine RBC (Auto) 0-4 /hpf (0-4) 10/21/22 05:56 U Hyaline Cast (Auto) 10-30 /lpf (0-5) H 10/21/22 05:56 U Epithel Cells (Auto) >30 /lpf (0-5) H 10/21/22 05:56 Urine Bacteria (Auto) 1+ (Negative) H 10/21/22 05:56 10/22/22 11:11 Aerobic Blood Culture - Preliminary Blood Enterococcus faecium VRE Anaerobic Blood Culture - Preliminary No growth in Anaerobic bottle after 48 hours. 10/22/22 11:00 Aerobic Blood Culture - Preliminary Blood Enterococcus faecium VRE Anaerobic Blood Culture - Preliminary No growth in Anaerobic bottle after 48 hours. 10/21/22 05:56 Urine Culture - Final Urine,Clean Catch No growth - less than 1,000 colonies/mL. 10/20/22 19:02 Aerobic Blood Culture - Preliminary Blood Enterococcus faecium VRE Anaerobic Blood Culture - Final 10/20/22 18:19 Aerobic Blood Culture - Final Blood Enterococcus faecium VRE Anaerobic Blood Culture - Final Enterococcus faecium VRE
[2022-10-26] MEDS ORDERED: LIDOCAINE 2% 2 ML VIAL/AMP(20MG/ML) INFIL ONE (08:33)
[2022-10-26] MEDS ORDERED: PROPOFOL IV EMULSION 10 MG/ML 20 ML VIAL IV ONE (08:33)
--- NOTE | 2022-10-26 09:29 | Hospitalist Progress Note ---
Date of Service October 26, 2022 Assessment & Plan (1) Sepsis: Plan: 72yoM with PMHx significant for hyperlipidemia, AAA s/p surgery in July 03, 2022, s/p surgery for cholecystectomy and liver resection on October 05, 2022 at [place] for infected gallbladder, currently with persistent bacteremia. Bacteremia/Hx of Admitted on 10/21 with fevers and chills, blood Cx positive for Enterococcus on admission, 10/22 and 10/25. On IV zosyn and Vanc originally. ID consult- switched to daptomycin ENRIQUE 10/25- notes 3.5 x 1.0cm mass extending from IVC into the RA, mobile component involving the RA portion of mass suggestive of thrombus. Per cardiology, "Recent CT reviewed with radiology who reports the mass is suggestive of thrombus versus tumor extending into the hepatic vein to the gallbladder fossa." Urgent general surgery consult- recommending transfer to [facility]. Pt started on IV heparin, will be transferred to [facility] for further medical, surgical and cardiothoracic care. Transfer accepted by Dr. Jaci Rose from the Medicine service at [facility]. History of AAA repair on 07/03/2022 S/p surgical repair on July 03, 2022 Continue aspirin and statin. Also noted to have had fevers following AAA repair that required hospitalization Hyperlipidemia On ezetimibe. Statin is on hold as he has been on daptomycin DVT prophylaxis Lovenox Disposition Close monitoring telemetry floor CODE STATUS Full code (2) Elevated procalcitonin: (3) Leukocytosis: Admission and Anticipated Discharge Date Admission Date: October 21, 2022 Results & Data Results & Data Vital Signs (Past 12 Hours) Vital Signs Temp Pulse Pulse Resp BP BP Pulse Ox 10/26/22 09:23 36.7 C 85 16 144/80 H 92 10/26/22 08:30 81 14 122/70 96 10/26/22 07:43 91 H 14 147/71 H 95 10/26/22 07:22 91 H 10/26/22 02:46 36.7 C 87 20 133/67 98 10/26/22 00:00 96 H 10/25/22 22:45 37.2 C 101 H 18 137/73 90 O2 Del Method 10/26/22 09:23 Room Air 10/26/22 08:30 Room Air 10/26/22 07:43 Room Air 10/26/22 07:22 10/26/22 02:46 Room Air 10/26/22 00:00 10/25/22 22:45 Room Air
--- NOTE | 2022-10-26 09:43 | Cardiology Progress Note ---
Date of Service October 26, 2022 Assessment & Plan (1) VRE bacteremia: (2) Inferior vena caval thrombosis: (3) Cholangiocarcinoma: (4) Sepsis: (5) S/P AAA repair: (6) HTN (hypertension): (7) History of tobacco abuse: Plan 72-year-old male admitted with fever, rigors, chills diagnosed with persistent VRE bacteremia. A transesophageal echocardiogram was performed this a.m. for further evaluation. There is no evidence of endocarditis or significant valvular dysfunction, however, there is evidence of an inferior vena caval mass measuring 3.5 x 1 cm extending into the right atrium. The right atrial portion of the mass is mobile suggestive of thrombus. Recent CT reviewed with radiology who reports the mass is suggestive of thrombus versus tumor extending into the hepatic vein to the gallbladder fossa. Given current clinical situation with persistent VRE bacteremia, I suspect this is the source of patient's infection. Results discussed with internal medicine physician immediately post procedure. Recommend urgent surgical consultation. If patient has not taken to the OR urgently, initiate IV heparin for treatment of IVC thrombus. Admission and Anticipated Discharge Date Admission Date: October 21, 2022 Subjective Patient seen and examined. Transesophageal echocardiogram performed in a.m. demonstrating mass in IVC extending to the right atrium with associated thrombus. There were no vegetations to suggest endocarditis. Patient remains afebrile. Results discussed with hospitalist who is currently consulting with general surgery. Review of Systems Review of Systems: All systems reviewed & are unremarkable except as noted in Subjective Physical Exam Constitutional: well nourished and + ill appearing; no acute distress Respiratory: normal respiratory effort; no respiratory distress, no labored breathing and no retractions Cardiovascular: Rate/Rhythm: regular rate and regular rhythm Heart Sounds: normal S1 and normal S2; no murmur Vessels: radial pulses present; no JVD and no carotid bruit Extremities: no edema Gastrointestinal (Abdomen): Inspection/Auscultation: abdomen normal to inspection and normal bowel sounds; abdomen not distended Percussion/Palpation: + abdomen tender; no guarding, abdomen not rigid and + abdomen not soft Neurologic: CN's II-XI intact bilaterally and moves all extremities Results & Data Vital Signs (Past 12 Hours) Vital Signs Temp Pulse Pulse Resp BP BP Pulse Ox 10/26/22 09:23 36.7 C 85 16 144/80 H 92 10/26/22 08:30 81 14 122/70 96 10/26/22 07:43 91 H 14 147/71 H 95 10/26/22 07:22 91 H 10/26/22 02:46 36.7 C 87 20 133/67 98 10/26/22 00:00 96 H 10/25/22 22:45 37.2 C 101 H 18 137/73 90 O2 Del Method 10/26/22 09:23 Room Air 10/26/22 08:30 Room Air 10/26/22 07:43 Room Air 10/26/22 07:22 10/26/22 02:46 Room Air 10/26/22 00:00 10/25/22 22:45 Room Air Laboratory Results Intake and Output 10/25/22 10/26/22 10/26/22 22:59 06:59 14:59 Intake Total 1081.333 / 1918.666 837.333 / 1918.666 Balance 1081.333 / 1918.666 837.333 / 1918.666 Intake: IV 881.333 / 1718.666 837.333 / 1718.666 Sodium Chloride 0.9% 1000ML 1, 881.333 / 1718.666 837.333 / 1718.666 000 ml @ 80 mls/hr IV .[id number] [facility] Rx#:[id number] Oral 200 / 200 Other: Other Intake Source NPO Weight 74.1 kg 74.1 kg 74.1 kg Weight Measurement Method Standing Scale Patient Weight 10/27/22 06:59 Weight 74.1 kg
[2022-10-26] MEDS ORDERED: Heparin IV Adult Wt-Based Low-Dose *NO* Bolus Protocol IV ONE (10:00)
[2022-10-26] MEDS ORDERED: HEPARIN SODIUM/DEXTROSE 25,000 UNITS/500 ML BAG IV SCH ×2 (10:00→10:15)
[2022-10-26] MEDS: ASPIRIN 81 MG ECTAB PO SCH (10:09)
[2022-10-26] MEDS: PANTOprazole 40 MG TAB PO SCH (10:09)
[2022-10-26] MEDS: ADVANCED PROBIOTIC 1250 MG CAPSULE PO SCH (10:09)
[2022-10-26] MEDS: MULTIVITAMIN TAB PO SCH (10:09)
[2022-10-26] MEDS: ENOXAPARIN INJ 40 MG/0.4 ML SYR SQ SCH (10:10)
[2022-10-26] MEDS: EZETIMIBE 10 MG TABLET PO SCH (10:10)
[2022-10-26] MEDS ORDERED: Heparin IV Adult Wt-Based Low-Dose *NO* Bolus Protocol IV SCH ×2 (10:15)
[2022-10-26 10:23] LABS: Basophils # (auto) 0.02 K/uL (0-0.2); Basophils % (auto) 0.2 %; Eosinophils # (auto) 0.07 K/uL (0-0.50); Eosinophils % (auto) 0.8 %; Hematocrit (blood only) 28.7 % (42.0-52.0); Hemoglobin 9.9 g/dl (14.0-18.0); Immature Granulocytes # (auto) 0.03 K/uL (0.01-0.20); Immature Granulocytes % (auto) 0.4 %; Lymphocytes # (auto) 1.32 K/uL (1.2-3.4); Lymphocytes % (auto) 15.9 %; Mean Corpuscular Hemoglobin 28.4 pg (25.0-34.0); Mean Corpuscular Hgb Conc 34.5 g/dL (32.0-36.0); Mean Corpuscular Volume 82.5 fL (80.0-100.0); Mean Platelet Volume 9.6 fL (9.4-12.4); Monocytes # (auto) 0.86 K/uL (0.11-0.59); Monocytes % (auto) 10.3 %; Neutrophils # (auto) 6.02 K/uL (1.40-6.50); Neutrophils % (auto) 72.4 %; Platelet Count 174 K/uL (130-400); RDW Coefficient of Variation 14.7 % (11.5-14.5); RDW Standard Deviation 43.6 fL (36.4-46.3); Red Blood Count 3.48 M/uL (4.70-6.10); White Blood Count 8.32 K/ul (4.8-10.8)
[2022-10-26 10:35] LABS: BUN Creatinine Ratio 18.4 (10-20); Calcium 7.5 mg/dl (8.6-10.3); Creatinine Clr Calc Pharmacy 138.6 ml/min; Est GFR (African American) 124.8 ml/min; Est GFR (Non-African American) 107.6 ml/min; Potassium 3.5 mmol/L (3.5-5.1)
--- NOTE | 2022-10-26 10:44 | Anesthesiology Progress Note ---
Date of Service October 26, 2022 Anesthesia Post Procedure Vital Signs Vital Signs: Temp Pulse Pulse Resp BP BP Pulse Ox 10/26/22 09:23 98.1 F 85 16 144/80 H 92 10/26/22 08:30 81 14 122/70 96 10/26/22 07:43 91 H 14 147/71 H 95 10/26/22 07:22 91 H 10/26/22 02:46 98.1 F 87 20 133/67 98 10/26/22 00:00 96 H 10/25/22 22:45 99.0 F 101 H 18 137/73 90 10/25/22 19:05 99.5 F 89 18 150/84 H 92 10/25/22 15:51 99.1 F 92 H 18 136/79 95 10/25/22 15:21 98 H 10/25/22 11:19 99.0 F 98 H 20 126/77 95 O2 Del Method 10/26/22 09:23 Room Air 10/26/22 08:30 Room Air 10/26/22 07:43 Room Air 10/26/22 07:22 10/26/22 02:46 Room Air 10/26/22 00:00 10/25/22 22:45 Room Air 10/25/22 19:05 Room Air 10/25/22 15:51 Room Air 10/25/22 15:21 10/25/22 11:19 Room Air Pain Intensity Upper Abdomen: Pain Intensity: 2 Bilateral Upper Chest: Pain Intensity: 5 Transfer of Care Handoff Completed per policy Notes Mental Status: alert / awake / arousable and participated in evaluation Patient Amnestic to Procedure: Yes Nausea / Vomiting: adequately controlled Pain: adequately controlled Airway Patency, RR, SpO2: stable & adequate BP & HR: stable & adequate Hydration State: stable & adequate Anesthetic Complications: no major complications apparent and Pt Satisfied with anesthetic care
[2022-10-26 11:54] LABS: INR 1.1 (0.9-1.1); Partial Thromboplastin Ratio 0.9; Partial Thromboplastin Time 25.6 Seconds (21.0-31.0); Prothrombin Time 11.9 Seconds (9.0-12.0)
--- NOTE | 2022-10-26 12:15 | Surgery Progress Note ---
I have seen this patient this am and discussed this case with the surgical PA as well as the medicine physician. I agree with the plan. Date of Service October 26, 2022 Assessment & Plan (1) VRE bacteremia: Plan: WBC 8, patient afebrile with stable vitals Patient continues with + blood cultures ENRIQUE performed this AM revealing inferior vena caval mass measuring 3.5 x 1 cm extending into the right atrium with concern for associated thrombus There is concern on CT scan for mass vs thrombus invading hepatic vein into gallbladder fossa Given complexity of situation would recommend patient be transferred to tertiary center for further management Pt agreeable with the plan, discussions in place w/ hospitalists Admission and Anticipated Discharge Date Admission Date: October 21, 2022 Subjective Patient reports feeling okay overall. Some abdominal discomfort in R side, that is manageable Physical Exam Physical Exam: awake/alert, no distress Gastrointestinal (Abdomen): Inspection/Auscultation: + abdominal surgical incision (c/d/i, no signs of infection); abdomen not distended Percussion/Palpation: + abdomen tender (discomfort in R abdomen) and abdomen soft Results & Data Vital Signs (Past 12 Hours) Vital Signs Temp Pulse Pulse Resp BP BP Pulse Ox 10/26/22 09:23 36.7 C 85 16 144/80 H 92 10/26/22 08:30 81 14 122/70 96 10/26/22 07:43 91 H 14 147/71 H 95 10/26/22 07:22 91 H 10/26/22 02:46 36.7 C 87 20 133/67 98 O2 Del Method 10/26/22 09:23 Room Air 10/26/22 08:30 Room Air 10/26/22 07:43 Room Air 10/26/22 07:22 10/26/22 02:46 Room Air PG Care Time/CCT Total # of Minutes Spent Total Time Spent with Patient: Total time spent is greater than 50% in coordination of care (as documented) at patient's floor/unit and/or counseling patient: Coding Level of Care Code 89768 SUB INP/OBS CARE 1/25MIN Diagnoses VRE bacteremia R78.81; B95.2; Z16.21
[2022-10-26] MEDS: DAPTOmycin 700 MG in SYRINGE 0 ML IV SCH (13:12)
--- NOTE | 2022-10-26 13:35 | Discharge Summary ---
Date of Service October 26, 2022 Admission HPI Per Admitting Provider This is a 72-year-old male with past medical significant for hyperlipidemia, abdominal aortic aneurysm s/p surgery in June 2022 at [facility], s/p surgery for cholecystectomy and part of liver taken out on October 05, 2022 at [facility] as per patient for infected gallbladder and clogging of the left liver ducts. Patient says the biopsy results just came as benign. Patient is from [facility].. Patient states he followed up after surgery with PCP 1 week later and found to have systolic blood pressure in 80s. PCP discussed the surgery at [facility] and was recommended to drink a lot of water and Gatorade and diuretics which were started after surgery with stopped. He states his blood pressure is improved to 100s. Patient states that usually his blood pressure is in 110/ 70 range. Patient states that after his AAA surgery in June 1 week later he was in [facility] for infection. Patient says they could not figure out where the infection is coming from but thought probably from gallbladder. Patient th inks his infection never went away. After his gallbladder and liver surgery he was on antibiotics which was done few days ago. Patient was camping close to [facility] and last night he had shaking chills and was nauseous and after vomiting his symptoms resolved. Again in the morning he had similar symptoms of shaking chills and and got resolved after vomiting. He also noticed his vision was very bright but his pupils were pinpoint . At this time it was decided to bring him to the hospital. On the way to the hospital his vision was again bright but sunglasses helped. Currently his vision is okay. His blood pressure was soft in the ER. Was nauseous. Has elevated white count and elevated procalcitonin. CT abdomen pelvis was okay. Urine sample is pending. Says has some pain at the incision site. Has shortness of breath on exertion. Denies any headache. Has some dizziness because his blood pressure is soft. No runny nose no sore throat. No cough. Afebrile. Had normal bowel movement yesterday. Denies any blood in the stools or black stools. Normal micturition as per the patient. Past medical history as mentioned above. Past surgical history s/p AAA repair surgery, s/p cholecystectomy and liver resection, history of penile implant Admission Exam Per Admitting Provider General- adult Head- atraumatic Eyes- PERRL, ENT- oropharynx clear Neck- supple, no JVD, no adenopathy, Lungs- clear to auscultation and percussion Heart- regular rhythm; no murmur, no gallop, no rub appreciated Abdomen- normal bowel sounds, soft, nontender, no masses , surgical incision no active drainage or erythema seen Extremities- no pretibial edema, no erythema Neuro- alert, oriented x 3; PERRL,; no facial palsy; no dysarthria; non focal Skin- warm & dry Principal Diagnosis Bacteremia Discharge Exam General: Alert, oriented. No acute distress Psych: Appropriate mood and affect Neuro: No gross deficits HEENT: NC/AT CV: RRR Resp: Breath sounds decreased bilaterally, no increased effort of breathing. Abdomen: Soft, tender in RUQ area, nondistended. No guarding. No organomegaly appreciated. Extremities: No edema in lower extremities bilaterally. Discharge Data Allergies Allergy/AdvReac Type Severity Reaction Status Date / Time No Known Allergies Allergy Verified 10/20/22 19:36 Consultations 10/20/22 22:42 ED Decision to Admit Stat 10/21/22 03:47 HIM [Consult Health Information Management] Routine 10/21/22 08:00 Consult General Surgery Routine 10/21/22 08:34 Consult Infectious Diseases Routine 10/25/22 13:15 Consult Cardiology Routine 10/25/22 13:26 Consult Vascular Surgery Routine 10/25/22 15:16 Consult Anesthesiology Routine Procedures Performed Operation Date: 10/26/22 08:00 Actual Procedures p Echo Transesophageal - Aroldo Roman DO Ordered Studies 10/20/22 18:07 CT Abd and Pelvis [CT abd pelvis IV con only] Stat Hospital Course (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 Transferring to [facility] for further medical, surgical and cardiothoracic care. Bacteremia Admitted on 10/21 with fevers and chills. Blood Cx x2 positive for Enterococcus faecium VRE on admission, and on repeats on 10/22 and 10/25. On IV zosyn and Vanc originally. ID consult- switched to daptomycin ENRIQUE 10/25- notes 3.5 x 1.0cm mass extending from IVC into the RA, mobile component involving the RA portion of mass suggestive of thrombus. Per cardiology, "Recent CT reviewed with radiology who reports the mass is suggestive of thrombus versus tumor extending into the hepatic vein to the gallbladder fossa." Urgent general surgery consult- recommending transfer back to [facility]. Pt started on IV heparin, will be transferred to [facility] for further medical, surgical and cardiothoracic care. Transfer accepted by Dr. Jaci Rose from the Medicine service at [facility]. History of AAA repair S/p surgical repair on July 03, 2022 Continue aspirin Of note, pt also noted to have had fevers following AAA repair that required hospitalization Hyperlipidemia On ezetimibe. Statin is on hold as he has been on daptomycin HTN Home spironolactone was held. 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 Activity: Per Instructions section Non-emergency contact: Primary Care Provider and Foot Miter Operator Call non-emergency contact if: your symptoms worsen Follow-up/Referrals: Luis Lemons DO [Primary Care Provider] - Diet: Nothing by Mouth Addtl Attending Provider Instructions: 72yoM with PMHx significant AAA s/p graft placement on 07/03/22, s/p cholecystectomy and hepatectomy in the setting of suspected cholangiocarcinoma on 10/05/22 at [facility] who is currently being treated for persistent bacteremia in the setting of newly noted IVC mass/thrombus extending into liver (hepatic vein and gallbladder fossa) and right atrium. Transferring to [facility] for further medical, surgical and cardiothoracic care. Bacteremia Admitted on 10/21 with fevers and chills, blood Cx positive for Enterococcus on admission, 10/22 and 10/25. On IV zosyn and Vanc originally. ID consult- switched to daptomycin ENRIQUE 10/25- notes 3.5 x 1.0cm mass extending from IVC into the RA, mobile component involving the RA portion of mass suggestive of thrombus. Per cardiology, "Recent CT reviewed with radiology who reports the mass is suggestive of thrombus versus tumor extending into the hepatic vein to the gallbladder fossa." Urgent general surgery consult- recommending transfer to [facility]. Pt started on IV heparin, will be transferred to [facility] for further medical, surgical and cardiothoracic care. Transfer accepted by Dr. Jaci Rose from the Medicine service at [facility]. History of AAA repair S/p surgical repair on July 03, 2022 Continue aspirin Of note, pt also noted to have had fevers following AAA repair that required hospitalization Hyperlipidemia On ezetimibe. Statin is on hold as he has been on daptomycin Pending Studies at Discharge: No Stand-Alone Forms: My [facility] Skilled Items Patient informed of condition?: Yes DNR: No Discharge Level of Care: Other Communicable Disease: No Discharge Prognosis: Stable Lines: Peripheral IV Urinary Catheter: No Medications and DC Order Prescriptions: Continued atorvastatin 80 mg tablet 80 mg PO QAM meloxicam 15 mg tablet 15 mg PO DAILY aspirin 81 mg Tablet,Delayed Release (Dr/Ec) 81 mg PO DAILY spironolactone 25 mg tablet 25 mg PO DAILY Rx Instructions: STARTED 10/09/22 FOR 14 DAYS. ibuprofen 600 mg tablet 600 mg PO Q6H PRN (Reason: Pain) ezetimibe 10 mg tablet 10 mg PO QAM oxycodone 10 mg tablet 10 mg PO Q6H PRN (Reason: Pain) No Action multivitamin Tablet 1 tab PO DAILY Discharge Orders: Discharge Order (Routine); Ordered 10/26/22 Ordered By: Asya Shaw Admission Data Admit Date/Time: 10/21/22 00:00 Attending Provider: Asya Shaw Admit Provider: Bill Luna Primary Care Provider: Luis Lemons Other Providers: Bill Luna ; Chris Cortez ; Jatinder Kirk ; Que Coleman ; Eddie Vásquez I. ; Unruly Cope II ; Jennie Cadet ; Wilbert Ulrich ; Chris Miranda ; Allyssa Moore ; Juliet Alvarenga ; [facility] ; Aroldo Roman ; Lupillo Molina ; Marah Sam ; Katey Power ; Norah Dillard ; Arlene Major ; Lynn Veloz ; Sharif Estrada ; Ricki Farrisif ; Pawel Cunningham ; Monroe Arizmendi ; Janell Arizmendi ; Bob Arellano ; Corinna Morales ; Maxime Menjivar ; Srinivasa Rojas ; Serafin Lomas ; Naseem Edmond ; Nenita Albright ; Wilbert Matthews ; Germania Rogers ; Jaja Matthews ; Cecilio Manriquez ; Demetrice Snyder ; Darian Munroe. ; Jackeline Bear ; Stephanie Francis ; Josué Osorio ; Blanca Andrew ; Elba Jacques ; Brigida Gutierres ; Abimbola Oliveros ; Hunter Oliveros V ; Cam Frey ; Katey Gallegos ; Elvis Humphrey ; Sunni Pitts ; Hunter Robins ; Heath Albright ; Jay Mosqueda ; Chica Flores ; Tere Valdivia ; Hunter Bañuelos ; Elieser Clarke. ; Michelle Doan ; Margaret Matos ; Jorden Mccurdy ; Jeremy Edmond ; Nelli Ramos ; Dhara Ronquillo ; Jose Ash ; Mathew Hoffman ; Sharif De Jr ; Shannon Hughes ; Petrona Boone A. ; Sara Brunner ; Josué Cedeno ; Arlene Amin ; Monroe Nicholson ; Deep Leonard I. ; Belen Brewer SJovanna ; Petrona Montejo ; Yadira Mcmullen ; Luis Barraza ; Bakari Argueta ; David Cheng ; Emory Cortez V. ; Joni Lundberg ; Allen Guerrero ; Johnna Monsalve
[2022-10-26 17:57] LABS: Partial Thromboplastin Ratio 1.4; Partial Thromboplastin Time 38.1 Seconds (21.0-31.0)
[2022-10-26] MEDS: oxyCODONE HCL IR 5 MG TAB (IMMEDIATE RELEASE) PO PRN (21:46)
--- NOTE | 2022-10-27 15:47 | Coding Query ---
CODING QUERY To promote full compliance with coding requirements relating to patient care, provider participation is requested in all cases of chair lift operator uncertainty. Please assist us with the question(s) below: Coding Question(s): Pt admitted with bacteremia. Discharge Summary document IVC thrombosis. Please check below the phrase that describes the IVC thrombosis. Thank you . PAM Elias [facility] Physician's Response(s): ___x The patient has possible IVC thrombosis The patient does not have IVC thrombosis Other: Please document: Principal Diagnosis: "that condition established after study, to be chiefly responsible for occasioning the admission of the patient to the hospital for care." Co-Existing Principal Diagnosis: "when two or more diagnoses equally meet the criteria for principal diagnosis as determined by the circumstances of admission, diagnostic work up, and/or therapy provided, and the Alphabetic Index, Tabular List, or another coding guideline does not provide sequencing direction, any one of the diagnoses may be sequenced first." "When the physician has documented what appears to be a current diagnosis in the body of the record, but has not included the diagnosis in the final diagnostic statement, the physician should be asked whether the diagnosis should be added." (Source [facility]oding [facility] 2 QTR90. p3-4) KHOA
--- NOTE | 2022-10-29 05:03 | Coding Query ---
SEPSIS To promote full compliance with coding requirements relating to patient care, physician participation is requested in all cases of engineering technician parking uncertainty. Please assist us with the question(s) below: In responding to this query, please exercise your independent professional judgement. The fact that a question is asked does not imply that any particular answer is desired or expected. We appreciate your clarification on this issue. Throughout the medical record, you have clearly documented a localized infection and your patient has clinical evidence of a generalized sepsis or severe sepsis. The term urosepsis is a nonspecific entity and is coded as an UTI. If the patient has sepsis, severe sepsis, from an urinary source or some other source, please clarify in your response below. The medical record reflects the following clinical findings: Pt admitted with enterococcal infection , elevated procalcitonin. Progress notes document sepsis , Discharge summary mentions bacteremia. Seeking to clarify- please check below the diagnosis, after study , that was treated during this admission. Thank you. Jero Nash [facility] ____ ( )Bacteremia (Nonspecific laboratory finding of bacteria in the blood) Specify Organism ( ) Present on Admission ( ) Not present on admission ( ) Unable to clinically determine ( ) Septicemia (Systemic disease associated with the presence of pathogenic microorganisms in the blood): Specify Organism ( ) Present on Admission ( ) Not present on admission ( ) Unable to clinically determine ( X) Sepsis Specify Organism VRE Specify Associated Condition/Diagnosis ( X) Present on Admission ( ) Not present on admission ( ) Unable to clinically determine ( ) Severe Sepsis (Sepsis associated with acute organ dysfunction) Specify Organism Specify Associated Condition/Diagnosis ( ) Present on Admission ( ) Not present on admission ( ) Unable to clinically determine ( ) Septic Shock (Severe sepsis with acute circulatory failure, unexplained by other causes) ( ) Present on Admission ( ) Not present on admission ( ) Unable to clinically determine ( ) Other, patient has: MTDD
== END 2022-10-26 23:06 | disposition short-term general hospital (02) | DRG 871 ==
LOC: ED 17:51 → SUATTDRO 10-21 → 2S 10-21